=== PATIENT | male | born 1970 | race Caucasian/White ===

== ENCOUNTER 2024-10-27 11:55 | Inpatient (IN) ==
--- NOTE | 2024-10-27 15:53 | EKG ---
Test Reason : chest pain Blood Pressure : */* mmHG Vent. Rate : 70 BPM Atrial Rate : 70 BPM P-R Int : 144 ms QRS Dur : 92 ms QT Int : 406 ms P-R-T Axes : 47 -4 134 degrees QTc Int : 438 ms Normal sinus rhythm Minimal voltage criteria for LVH, may be normal variant ( R in aVL ) Inferior infarct , age undetermined Cannot rule out Anterior infarct , age undetermined Abnormal ECG No previous ECGs available Confirmed by Campbell Rodriguez MD ([id number]) on 10/28/2024 7:47:46 AM Referred By: Confirmed By: Campbell Rodriguez MD
[2024-10-27 16:07] LABS: BASOPHILS % (AUTO) 0.2 % (0.2-1.0); EOSINOPHILS # (AUTO) 0.1 x10^3/uL (0.0-0.2); EOSINOPHILS % (AUTO) 0.4 % (0.9-2.9); NEUTROPHILS % (AUTO) 88.3 % (42.0-75.0); WHITE BLOOD COUNT 20.6 X10^3/uL (3.6-10.0)
[2024-10-27 16:11] LABS: LYMPHOCYTES # (AUTO) 1.4 X10^3/uL (1.3-2.9); LYMPHOCYTES % (AUTO) 6.9 % (21.0-51.0); MEAN CORPUSCULAR HEMOGLOBIN 26.3 pg (27.0-34.0); MEAN CORPUSCULAR HGB CONC 32.8 g/dL (33.0-35.0); MEAN CORPUSCULAR VOLUME 80.2 fL (80.0-100.0); MEAN PLATELET VOLUME 7.7 fL (7.4-11.0); MONOCYTES # (AUTO) 0.9 x10^3/uL (0.3-0.8); MONOCYTES % (AUTO) 4.2 % (0.0-13.0); NEUTROPHILS # (AUTO) 18.1 x10^3/uL (2.2-4.8); PLATELET COUNT 732 X10^3/uL (150.0-450.0); RED BLOOD COUNT 2.23 X10^6/uL (4.7-6.0); RED CELL DISTRIBUTION WIDTH 16.4 % (11.6-16.5); RETICULOCYTE % 3.93 % (0.8-2.2)
[2024-10-27] MEDS: NS 1,000 ML IV 1,000 ML IV SCH ×2 (16:15→18:55)
[2024-10-27 16:16] LABS: HEMOGLOBIN 5.9 g/dL (13.5-18.0)
[2024-10-27 16:17] LABS: HEMATOCRIT 17.9 % (42.0-54.0)
[2024-10-27 16:32] LABS: ALBUMIN 1.6 g/dL (3.4-5.0); CALCIUM 8.1 mg/dL (8.5-10.1); CARBON DIOXIDE 24.7 mmol/L (21-32); CREATININE 3.88 mg/dL (0.70-1.30); TOTAL PROTEIN 6.4 g/dL (6.4-8.2)
[2024-10-27 17:14] LABS: POTASSIUM 7.1 mmol/L (3.5-5.1)
[2024-10-27 17:35] VITALS: BMI 23.0
[2024-10-27] MEDS: NS 1,000 ML IV 1,000 ML IV ONE (17:50)
[2024-10-27] MEDS: NORCO 5/325 MG TAB PO PRN (18:22)
[2024-10-27] MEDS: NovoLIN R (or HumuLIN R) SUBCUT PRN (18:23)
[2024-10-27 20:52] LABS: CALCIUM 7.8 mg/dL (8.5-10.1); CARBON DIOXIDE 24.3 mmol/L (21-32); CREATININE 3.86 mg/dL (0.70-1.30)
[2024-10-27 20:54] LABS: POTASSIUM 6.6 mmol/L (3.5-5.1)
[2024-10-27] MEDS: SNACK - Diabetic Appropriate PO SCH (20:54)
[2024-10-27] MEDS: NS 250 ML IV 250 ML IV ONE (21:44)
[2024-10-27] MEDS: LOKELMA POWDER PO SCH (22:29)
[2024-10-28 00:46] LABS: BILIRUBIN,URINE NEGATIVE (NEGATIVE); BLOOD/HEMOGLOBIN,URINE 4+ (NEGATIVE); GLUCOSE, URINE 4+ (NEGATIVE); KETONES,URINE NEGATIVE (NEGATIVE); LEUKOCYTE ESTERASE ,URINE 3+ (NEGATIVE); NITRITES,URINE NEGATIVE (NEGATIVE); PROTEIN,URINE 3+ (NEGATIVE); UROBILINOGEN,URINE NORMAL (NORMAL)
[2024-10-28 00:53] LABS: APPEARANCE,URINE CLOUDY (CLEAR); BACTERIA,URINE TRACE /HPF (NEGATIVE); COLOR,URINE YELLOW (YELLOW); SQUAMOUS EPITHELIAL CELL,UR RARE /HPF (NEGATIVE)
[2024-10-28 05:00] LABS: BASOPHILS % (AUTO) 0.2 % (0.2-1.0); EOSINOPHILS # (AUTO) 0.2 x10^3/uL (0.0-0.2); EOSINOPHILS % (AUTO) 0.8 % (0.9-2.9); HEMATOCRIT 23.1 % (42.0-54.0); LYMPHOCYTES # (AUTO) 1.1 X10^3/uL (1.3-2.9); LYMPHOCYTES % (AUTO) 4.7 % (21.0-51.0); MEAN CORPUSCULAR HGB CONC 34.3 g/dL (33.0-35.0); MEAN CORPUSCULAR VOLUME 81.7 fL (80.0-100.0); MEAN PLATELET VOLUME 7.6 fL (7.4-11.0); MONOCYTES % (AUTO) 4.2 % (0.0-13.0); NEUTROPHILS # (AUTO) 21.4 x10^3/uL (2.2-4.8); NEUTROPHILS % (AUTO) 90.1 % (42.0-75.0); PLATELET COUNT 666 X10^3/uL (150.0-450.0); RED BLOOD COUNT 2.82 X10^6/uL (4.7-6.0); RED CELL DISTRIBUTION WIDTH 18.1 % (11.6-16.5); WHITE BLOOD COUNT 23.7 X10^3/uL (3.6-10.0)
[2024-10-28 05:08] LABS: ALBUMIN 1.7 g/dL (3.4-5.0); CALCIUM 8.4 mg/dL (8.5-10.1); CARBON DIOXIDE 25.7 mmol/L (21-32); COR CA(FOR HYPOALB) 10.2 mg/dL (8.5-10.1); CREATININE 3.58 mg/dL (0.70-1.30); TOTAL PROTEIN 6.4 g/dL (6.4-8.2)
[2024-10-28 05:31] LABS: HEMOGLOBIN 7.9 g/dL (13.5-18.0)
[2024-10-28 05:32] LABS: ANISOCYTOSIS SLIGHT; PLATELET MORPHOLOGY COMMENT NORMAL (NORMAL)
[2024-10-28 05:35] LABS: HEMOGLOBIN A1C 9.2 %
[2024-10-28 05:42] LABS: SERUM ACETONE NEGATIVE (NEGATIVE)
--- NOTE | 2024-10-28 08:14 | DR.H&P ---
H&P History & Physical for Day of: H&P Date: 10/27/24 Chief Complaint Chief Complaint: generalized weakness back pain, chest pain, abdominal pain History of Present Illness History of Present Illness: Patient is a 53 year old male with past medical history of Type 2 Diabetes mellitus, Hypertension, CAD, OA, Hyperlipidemia, pr esenting as direct admit for abnormal electrolytes and symptomatic anemia. Patient reports generalized weakness, dizziness, abdominal pain, multiple joint pain, and chest pain. Labs/imaging: WBC 21.6, hemoglobin of 5.9, platelets 732, sodium 120 (corrected 138), potassium 6.6, creatinine 3.86, glucose 508, Blood/urine culture pending. A1c 9.2, alkaline phosphatase 193, iron 70, B12 1140, ferritin 881, fecal occult pending, ESR and CRP pending, troponin negative. Patient was admitted for symptomatic anemia, hyperkalemia, acute renal failure, possible GI bleed, hyponatremia, chest pain rule out, hyperosmolar hyperglycemic state. He was given IV fluid bolus, and started on IV fluids normal saline at 125 mL/h. Sliding scale insulin. Will order 2 units packed red blood cells for transfusion. Will also give Lokelma for hyperkalemia. Chest x-ray, CT abdomen and pelvis, and x-ray of the lumbar have been ordered and are pending. Replete electrolytes per protocol. Patient is currently on telemetry in the ICU. Consult general surgery for further evaluation. Otherwise continue with current treatment plan. Continue closely monitor and follow-up labs/imaging. Time spent on clinical assessment, reviewing labs and imaging, decision making, and documentation greater than 45 minutes. Allergies Allergies Allergy/AdvReac Type Severity Reaction Status Date / Time No Known Allergies Allergy Verified 07/15/24 13:40 Labs 10/28/24 04:25 10/28/24 04:25 Labs: Laboratory WBC 20.6 X10^3/uL (3.6-10.0) H 10/27/24 15:35 RBC 2.23 X10^6/uL (4.7-6.0) L 10/27/24 15:35 Hgb 5.9 g/dL (13.5-18.0) L* 10/27/24 15:35 Hct 17.9 % (42.0-54.0) L* 10/27/24 15:35 MCV 80.2 fL (80.0-100.0) 10/27/24 15:35 MCH 26.3 pg (27.0-34.0) L 10/27/24 15:35 MCHC 32.8 g/dL (33.0-35.0) L 10/27/24 15:35 RDW 16.4 % (11.6-16.5) 10/27/24 15:35 Plt Count 732 X10^3/uL (150.0-450.0) H 10/27/24 15:35 MPV 7.7 fL (7.4-11.0) 10/27/24 15:35 Neut % (Auto) 88.3 % (42.0-75.0) H 10/27/24 15:35 Lymph % (Auto) 6.9 % (21.0-51.0) L 10/27/24 15:35 [place] % (Auto) 4.2 % (0.0-13.0) 10/27/24 15:35 Eos % (Auto) 0.4 % (0.9-2.9) L 10/27/24 15:35 Baso % (Auto) 0.2 % (0.2-1.0) 10/27/24 15:35 Neut # (Auto) 18.1 x10^3/uL (2.2-4.8) H 10/27/24 15:35 Lymph # (Auto) 1.4 X10^3/uL (1.3-2.9) 10/27/24 15:35 [place] # (Auto) 0.9 x10^3/uL (0.3-0.8) H 10/27/24 15:35 Eos # (Auto) 0.1 x10^3/uL (0.0-0.2) 10/27/24 15:35 Baso # (Auto) 0.0 X10^3/uL (0.0-0.1) 10/27/24 15:35 Absolute Nucleated RBC 0.0 /100WBC 10/27/24 15:35 Absolute Retic 0.0876 10^6/uL 10/27/24 15:35 Percent Retic 3.93 % (0.8-2.2) H 10/27/24 15:35 Lactic Acid 1.7 mmol/L (0.4-2.0) 10/27/24 15:35 Review of Systems Constitutional: Weakness Eyes: No Symptoms Reported ENT: No Symptoms Reported Respiratory: No Symptoms Reported Cardiovascular: Chest Pain Gastrointestinal: Abdominal Pain Genitourinary: No Symptoms Reported Musculoskeletal: Back Pain Skin: No Symptoms Reported Neurological: No Symptoms Reported Physical Exam Vital Signs: Vital Signs Blood Pressure 102/64 Oriented: Normal Eyes: Normal Ear: Normal Nose: Normal Throat: Normal Respiratory: Clear Throughout Cardiovascular: Normal : Normal Auscultation: Bowel Sounds: Normal Palpation: Normal Tenderness: Epigastric Skin: Decreased Turgur Musculoskeletal: Shoulder and Back:Lumbar (tenderness) Psychiatric: Normal Mood Description: Calm and Appropriate Affect: Normal Speech Pattern: Clear and Appropriate Assessment/Plan (1) Symptomatic anemia: Status: Acute Plan: transfuse 2u packed red blood cells heme occult pending (2) Acute renal failure: Qualifiers: Acute renal failure type: unspecified Qualified Code(s): N17.9 - Acute kidney failure, unspecified Status: Acute Plan: IVF, monitor renal function hold nephrotoxic agents (3) Hyperkalemia: Status: Acute Plan: Order Lokelma (4) Hyponatremia: Status: Acute Plan: IVF (5) Hyperosmolar hyperglycemic state (HHS): Status: Acute (6) Chest pain, rule out acute myocardial infarction: Status: Acute Plan: Troponin negative Review H&P Reviewed: Yes Patient was examined?: Yes
[2024-10-28 08:26] LABS: AMYLASE 31 Units/L (25-115); LIPASE 34 Units/L (16-77)
[2024-10-28 08:56] LABS: RHEUMATOID FACTOR NEGATIVE (NEGATIVE)
[2024-10-28] MEDS ORDERED: PLAVIX PO SCH (09:00)
[2024-10-28] MEDS ORDERED: NS 250 ML IV 250 ML IV ONE (09:29)
--- NOTE | 2024-10-28 09:57 | CT ---
EXAM: CT ABDOMEN AND PELVIS WITHOUT CONTRAST HISTORY: ABD PAIN; COMPARISON: None. TECHNIQUE: Axial CT images were obtained through the abdomen and pelvis without contrast. Coronal reformatted im ages were included. All CT scans at this facility use dose modulation, iterative reconstruction, and/or weight based dosi ng when appropriate to reduce radiation dose to as low as reasonably achievable. FINDINGS: Please note that without the use of intravenous contrast, evaluation of organ parenchyma is limited. LOWER THORAX: Trace pleural effusions and bibasilar atelectasis. Previous CABG ABDOMEN: LIVER: Normal GALLBLADDER: Likely stones or sludge SPLEEN: Normal PANCREAS: Normal KIDNEYS: Fairly significant right-sided perinephric fat stranding is present with some edema of the r enal parenchyma ADRENAL GLANDS: Normal GI TRACT: Mild colonic distention in the cecum and transverse colon LYMPH NODES: No enlarged nodes VESSELS: Mild athero sclerotic disease PERITONEUM / RETROPERITONEUM: No free gas PELVIS: BLADDER: Normal GENITALS: Normal BONES: Normal IMPRESSION: Right-sided renal fullness and parenchymal edema with perinephric fat stranding. Ascending infectiou s not excluded in the setting no definite obstructive stones or hydronephrosis. Patchy airspace consolidation left lung base may be infectious. Trace right pleural effusion. THIS IS AN ELECTRONICALLY VERIFIED FINAL REPORT 10/28/2024 9:54 AM - Electronically signed by Heriberto Myles MD
[2024-10-28] MEDS: ZOSYN VIAL 3.375 GRAMS 3.375 G in NS 100 ML IV 100 ML IV SCH (10:19)
[2024-10-28] MEDS: PROTONIX INJ 40 MG VIAL IVP SCH ×2 (10:19→21:23)
[2024-10-28] MEDS: NS 250 ML IV 25 ML IV PRN (10:19)
[2024-10-28] MEDS: ASPIRIN EC 81 MG PO SCH (10:19)
--- NOTE | 2024-10-28 10:24 | PCM.PROG ---
Progress Note Progress Note for Day of Date of Exam: 10/28/24 Subjective Subjective: Patient seen at bedside, no acute events overnight. He is currently admitted for anemia, GI bleed, UTI and electrolyte imbalance. He recieved 2 units PRBCs, hgb 7.9. He reports having dark tarry stools. Dr Acevedo has been consulted, plan for EGD in the AM. UA suggestive of infection. Na and K im proving, renal function slowly improving. Denies any chest pain or SOB. Denies N/V/D or abdominal pain. He reports generalized weakness. CTAP, CXR and lumbar XR pending. Labs/imaging reviewed: -WBC 23 Hgb 7.9 Plt 660 Na: 124 K 6.0 BUN/Cr 84/3.58 Glucose 140 -Urine Cx pending -Blood Cx pending -FOBT + Plan: Continue ICU care for closer monitoring. Follow surgery recommendations. EGD tomorrow. Continue protonix IV. Monitor H&H. Continue hydration. Will hold off asa/plavix. Follow pending imaging studies. Continue Lokelma. Repeat K level this afternoon. Add Zosyn, follow final cultures. Resume home medications. Avoid nephrotoxic medications. Monitor AM labs/imaging. Time spent for clinical assessment, reviewing labs/imaging, physical exam, decision making and documentation greater than 45 mins. Past Medical Family Social History Allergies: Allergies No Known Allergies Allergy (Verified 07/15/24 13:40) Vital Signs and I&O's Vital Signs: Vital Signs Temperature 98.7 F Temperature 99.0 F Pulse Rate 85 Pulse Rate 86 Pulse Rate 84 Pulse Rate 83 Pulse Rate 83 Pulse Rate 84 Pulse Rate 84 Pulse Rate 84 Pulse Rate 84 Pulse Rate 85 Pulse Rate 85 Pulse Rate 86 Pulse Rate 87 Pulse Rate 86 Pulse Rate 85 Pulse Rate 86 Pulse Rate 85 Pulse Rate 85 Pulse Rate 85 Pulse Rate 85 Pulse Rate 85 Pulse Rate 84 Pulse Rate 83 Pulse Rate 85 Pulse Rate 83 Pulse Rate 83 Pulse Rate 82 Pulse Rate 81 Pulse Rate 81 Pulse Rate 80 Pulse Rate 79 Pulse Rate 78 Respiratory Rate 29 Respiratory Rate 19 Respiratory Rate 26 Respiratory Rate 25 Respiratory Rate 29 Respiratory Rate 29 Respiratory Rate 29 Respiratory Rate 29 Respiratory Rate 27 Respiratory Rate 29 Respiratory Rate 29 Respiratory Rate 28 Respiratory Rate 27 Respiratory Rate 27 Respiratory Rate 28 Respiratory Rate 28 Respiratory Rate 30 Respiratory Rate 29 Respiratory Rate 25 Respiratory Rate 31 Respiratory Rate 29 Respiratory Rate 26 Blood Pressure 117/59 Blood Pressure 124/62 Blood Pressure 117/63 Blood Pressure 134/73 Blood Pressure 134/73 Blood Pressure 152/75 Blood Pressure 157/75 Blood Pressure 144/73 Blood Pressure 144/73 Blood Pressure 153/72 Blood Pressure 128/65 O2 Sat by Pulse Oximetry 95 O2 Sat by Pulse Oximetry 97 O2 Sat by Pulse Oximetry 94 O2 Sat by Pulse Oximetry 99 O2 Sat by Pulse Oximetry 98 O2 Sat by Pulse Oximetry 99 O2 Sat by Pulse Oximetry 97 O2 Sat by Pulse Oximetry 97 O2 Sat by Pulse Oximetry 98 O2 Sat by Pulse Oximetry 97 O2 Sat by Pulse Oximetry 97 O2 Sat by Pulse Oximetry 98 O2 Sat by Pulse Oximetry 97 O2 Sat by Pulse Oximetry 97 O2 Sat by Pulse Oximetry 94 O2 Sat by Pulse Oximetry 96 O2 Sat by Pulse Oximetry 97 O2 Sat by Pulse Oximetry 96 O2 Sat by Pulse Oximetry 96 O2 Sat by Pulse Oximetry 96 O2 Sat by Pulse Oximetry 97 O2 Sat by Pulse Oximetry 97 O2 Sat by Pulse Oximetry 97 O2 Sat by Pulse Oximetry 97 O2 Sat by Pulse Oximetry 96 O2 Sat by Pulse Oximetry 98 O2 Sat by Pulse Oximetry 98 O2 Sat by Pulse Oximetry 94 O2 Sat by Pulse Oximetry 91 O2 Sat by Pulse Oximetry 92 O2 Sat by Pulse Oximetry 93 Intake and Output: Intake & Output 10/25/24 10/26/24 10/27/24 10/28/24 23:59 23:59 23:59 23:59 Intake Total 2010 1177 / 1177 Balance 2010 1177 / 1177 Physical Exam Oriented: Normal Eyes: Normal Ear: Normal Nose: Normal Throat: Normal Respiratory: Generalized and Diminished Cardiovascular: Normal Auscultation: Bowel Sounds: Normal Palpation: Normal Tenderness: Normal Skin: Decreased Turgur Musculoskeletal: Shoulder and Back:Lumbar (tenderness) Psychiatric: Normal Mood Description: Calm and Appropriate Affect: Normal Speech Pattern: Clear and Appropriate Laboratory and Diagnostics 10/28/24 04:25 10/28/24 04:25 Labs: 10/27/24 15:35 Blood Blood Culture Gram Stain - Final Laboratory WBC 23.7 X10^3/uL (3.6-10.0) H 10/28/24 04:25 RBC 2.82 X10^6/uL (4.7-6.0) L 10/28/24 04:25 Hgb 7.9 g/dL (13.5-18.0) L D 10/28/24 04:25 Hct 23.1 % (42.0-54.0) L 10/28/24 04:25 MCV 81.7 fL (80.0-100.0) 10/28/24 04:25 MCH 28.0 pg (27.0-34.0) 10/28/24 04: MCHC 34.3 g/dL (33.0-35.0) 10/28/24 04: RDW 18.1 % (11.6-16.5) H 10/28/24 04:25 Plt Count 666 X10^3/uL (150.0-450.0) H 10/28/24 04: Plt Count Comment Increased (ADEQUATE) 10/28/24 04: MPV 7.6 fL (7.4-11.0) 10/28/24 04: Neut % (Auto) 90.1 % (42.0-75.0) H 10/28/24 04: Lymph % (Auto) 4.7 % (21.0-51.0) L 10/28/24 04:25 [place] % (Auto) 4.2 % (0.0-13.0) 10/28/24 04: Eos % (Auto) 0.8 % (0.9-2.9) L 10/28/24 04: Baso % (Auto) 0.2 % (0.2-1.0) 10/28/24 04: Neut # (Auto) 21.4 x10^3/uL (2.2-4.8) H 10/28/24 04:25 Lymph # (Auto) 1.1 X10^3/uL (1.3-2.9) L 10/28/24 04:25 [place] # (Auto) 1.0 x10^3/uL (0.3-0.8) H 10/28/24 04:25 Eos # (Auto) 0.2 x10^3/uL (0.0-0.2) 10/28/24 04: Baso # (Auto) 0.0 X10^3/uL (0.0-0.1) 10/28/24 04: Absolute Nucleated RBC 0.0 /100WBC 10/28/24 04:25 Total Counted 100 10/28/24 04:25 Neutrophils % (Manual) 87 % (39-76) H 10/28/24 04:25 Lymphocytes % (Manual) 10 % (13-43) L 10/28/24 04:25 Monocytes % (Manual) 2 % (4-9) L 10/28/24 04:25 Eosinophils % (Manual) 1 % (0-6) 10/28/24 04:25 Plt Morphology Comment Normal (NORMAL) 10/28/24 04:25 RBC Morphology Abnormal (NORMAL) 10/28/24 04:25 Anisocytosis Slight A 10/28/24 04:25 ESR 69 MM/HOUR (0-15) H 10/28/24 04:25 Absolute Retic 0.0876 10^6/uL 10/27/24 15:35 Percent Retic 3.93 % (0.8-2.2) H 10/27/24 15:35 Sodium 124 mmol/L (136-145) L* 10/28/24 04:25 Corrected Sodium 125 mmol/L (136-145) L 10/28/24 04:25 Potassium 6.0 mmol/L (3.5-5.1) H* 10/28/24 04:25 Chloride 91 mmol/L (98-107) L 10/28/24 04:25 Carbon Dioxide 25.7 mmol/L (21-32) 10/28/24 04:25 BUN 85 mg/dL (7-18) H 10/28/24 04:25 Creatinine 3.58 mg/dL (0.70-1.30) H 10/28/24 04:25 Est GFR (MDRD) Af Amer 23 (>60) L 10/28/24 04:25 Est GFR (MDRD) Non-Af 19 (>60) L 10/28/24 04:25 Glucose 140 mg/dL (65-99) H 10/28/24 04:25 POC Glucose (mg/dL) 140 mg/dL (65-99) H 10/28/24 05:17 Hemoglobin A1c 9.2 % 10/28/24 04:25 Lactic Acid 1.7 mmol/L (0.4-2.0) 10/27/24 15:35 Calcium 8.4 mg/dL (8.5-10.1) L 10/28/24 04:25 Corrected Calcium 10.2 mg/dL (8.5-10.1) H 10/28/24 04:25 Iron 70 ug/dL (50-175) 10/27/24 15:35 TIBC 207 ug/dL (250-450) L 10/27/24 15:35 Transferrin 164 mg/dL (202-364) L 10/27/24 15:35 Ferritin 881 ng/mL (26-388) H 10/27/24 15:35 Total Bilirubin 0.80 mg/dL (0.2-1.0) 10/28/24 04:25 AST 27 Units/L (15-37) 10/28/24 04:25 ALT 20 Units/L (12-78) 10/28/24 04:25 Alkaline Phosphatase 193 Units/L (46-116) H 10/28/24 04:25 Troponin I High Sens 6.2 ng/L (4.0-60.0) 10/27/24 21:20 C-Reactive Protein 93.90 mg/L (0-3.0) H 10/28/24 04:25 Total Protein 6.4 g/dL (6.4-8.2) 10/28/24 04:25 Albumin 1.7 g/dL (3.4-5.0) L 10/28/24 04:25 Globulin 4.7 g/dL (2.5-4.5) H 10/28/24 04:25 Albumin/Globulin Ratio 0.4 Ratio (1.1-2.1) L 10/28/24 04:25 Amylase 31 Units/L (25-115) 10/28/24 04:25 Lipase 34 Units/L (16-77) 10/28/24 04:25 Vitamin B12 1140 pg/mL (193-986) H 10/27/24 15:35 Folate 7.5 ng/mL (>8.6) L 10/27/24 15:35 Specimen Type Clean catch urine 10/28/24 00:25 Urine Color Yellow (YELLOW) 10/28/24 00:25 Urine Appearance Cloudy (CLEAR) 10/28/24 00:25 Urine pH 5.0 (5.0 - 8.0) 10/28/24 00:25 Ur Specific [place] 1.015 (1.000-1.030) 10/28/24 00:25 Urine Protein 3+ (NEGATIVE) 10/28/24 00:25 Urine Glucose (UA) 4+ (NEGATIVE) 10/28/24 00:25 Urine Ketones Negative (NEGATIVE) 10/28/24 00:25 Urine Blood 4+ (NEGATIVE) 10/28/24 00:25 Urine Nitrite Negative (NEGATIVE) 10/28/24 00:25 Urine Bilirubin Negative (NEGATIVE) 10/28/24 00:25 Urine Urobilinogen Normal (NORMAL) 10/28/24 00:25 Ur Leukocyte Esterase 3+ (NEGATIVE) 10/28/24 00:25 Urine RBC 5-10 /HPF (0-3) A 10/28/24 00:25 Urine WBC Tntc /HPF (0-5) A 10/28/24 00:25 Ur Squamous Epith Cells Rare /HPF (NEGATIVE) 10/28/24 00:25 Amorphous Sediment Trace /HPF (NEGATIVE) 10/28/24 00:25 Urine Bacteria Trace /HPF (NEGATIVE) 10/28/24 00:25 Ur Culture Indicated? Yes/culture set up 10/28/24 00:25 Stl Occult Blood (IFOB) Positive (NEGATIVE) A 10/28/24 08:47 Acetone, Semi-Quant Negative (NEGATIVE) 10/28/24 04:25 Rheumatoid Factor Negative (NEGATIVE) 10/28/24 04:25 Blood Type B NEGATIVE 10/27/24 15:46 Antibody Screen Negative 10/27/24 15:46 Crossmatch See Detail 10/27/24 15:46 Plan (1) GI bleed: Status: Acute Qualifiers: GI bleed type/associated pathology: melena Qualified Code(s): K92.1 - Melena (2) Symptomatic anemia: Status: Acute (3) Acute renal failure: Status: Acute Qualifiers: Acute renal failure type: unspecified Qualified Code(s): N17.9 - Acute kidney failure, unspecified (4) Hyperkalemia: Status: Acute (5) Hyponatremia: Status: Acute Plan: IVF (6) Hyperosmolar hyperglycemic state (HHS): Status: Acute (7) UTI (urinary tract infection): Status: Acute Qualifiers: Hematuria presence: without hematuria Urinary tract infection type: acute cystitis Qualified Code(s): N30.00 - Acute cystitis without hematuria (8) CAD (coronary artery disease): Status: Chronic Qualifiers: Associated angina: unspecified whether angina present Coronary Disease- Associated Artery/Lesion type: unspecified vessel or lesion type [place] vs. transplanted heart: unspecified whether [place] or transplanted heart Qualified Code(s): I25.10 - Atherosclerotic heart disease of [place] coronary artery without angina pectoris (9) Hyperlipidemia: Status: Chronic Qualifiers: Hyperlipidemia type: mixed hyperlipidemia Qualified Code(s): E78.2 - Mixed hyperlipidemia (10) Hypertension: Status: Chronic Qualifiers: Hypertension type: primary hypertension Qualified Code(s): I10 - Esse ntial (primary) hypertension (11) Type 2 diabetes mellitus: Status: Chronic Qualifiers: Diabetes mellitus complication status: with other specified complication Diabetes mellitus penitentiary insulin use: without terminal operator use Qualified Code(s): E11.69 - Type 2 diabetes mellitus with other specified complication
--- NOTE | 2024-10-28 10:47 | RAD ---
EXAM:LUMBAR SPINE, COMPLETEHISTORY:BACK PAIN;COMPARISON:CT abdomen and pelvis 10/28/2024FINDINGS:5 non-ribbed lumbar type vertebral bodies are identified.Very slight sigmoid-shaped curvature. Straightening of the usual lumbar lordosis might be due to muscle spasm.The heights of the vertebral bodies are normal.No spondylolisthesis. No spondylolysis.No evidence for acute fracture.No significant degenerative spondylosis is present.Vascular calcifications are noted in the aorta.EKG leads are noted. Gas is present and moderately distended stomach.IMPRESSION:1. Possible muscle spasmTHIS IS AN ELECTRONICALLY VERIFIED FINAL REPORT10/28/2024 10:20 AM - Electronically signed by Jose Guerrero MD
--- NOTE | 2024-10-28 10:51 | RAD ---
EXAM: AP chest HISTORY: Chest pain COMPARISON: 05/28/2024 FINDINGS: Heart size normal with sternal wires. Stable elevation left diaphragm with distended bowel beneath. Increasing vascular congestion and interstitial pulmonary prominence concerning for perivascular ed guille. IMPRESSION: Described findings suspect for developing CHF/pulmonary edema. No localized pneumonic consolidation is noted. THIS IS AN ELECTRONICALLY VERIFIED FINAL REPORT 10/28/2024 10:48 AM - Electronically signed by Dustin Gregory MD
[2024-10-28 11:59] LABS: HEMOGLOBIN 7.6 g/dL (13.5-18.0)
[2024-10-28 12:06] LABS: HEMATOCRIT 22.5 % (42.0-54.0)
[2024-10-28 12:15] LABS: CALCIUM 7.9 mg/dL (8.5-10.1); CARBON DIOXIDE 22.4 mmol/L (21-32); CREATININE 3.77 mg/dL (0.70-1.30); POTASSIUM 5.3 mmol/L (3.5-5.1)
[2024-10-28] MEDS: TYLENOL 325 MG TAB PO PRN (16:29)
[2024-10-28] MEDS: LASIX IVP ONE (16:51)
[2024-10-28] MEDS: DUONEB 0.5 MG/3 MG (3 mL) NEB SCH (17:00)
[2024-10-28 20:27] LABS: CRYPTOSPORIDIUM PARVUM ANTIGEN NEGATIVE (NEGATIVE); GIARDIA LAMBLIA ANTIGEN NEGATIVE (NEGATIVE)
[2024-10-28] MEDS: PULMICORT NEB TX 0.5 MG NEB SCH (20:34)
[2024-10-28] MEDS: LIPITOR TAB 40 MG PO SCH (21:23)
[2024-10-28] MEDS: HIBICLENS WASH EXT ONE (23:17)
[2024-10-28] MEDS: NS 250 ML IV 250 ML IV ONE (23:19)
[2024-10-29 04:53] LABS: BASOPHILS % (AUTO) 0.2 % (0.2-1.0); EOSINOPHILS # (AUTO) 0.1 x10^3/uL (0.0-0.2); EOSINOPHILS % (AUTO) 0.5 % (0.9-2.9); HEMOGLOBIN 8.6 g/dL (13.5-18.0); LYMPHOCYTES # (AUTO) 0.8 X10^3/uL (1.3-2.9); LYMPHOCYTES % (AUTO) 3.4 % (21.0-51.0); MEAN CORPUSCULAR HEMOGLOBIN 28.7 pg (27.0-34.0); MEAN CORPUSCULAR HGB CONC 34.3 g/dL (33.0-35.0); MEAN CORPUSCULAR VOLUME 83.7 fL (80.0-100.0); MEAN PLATELET VOLUME 7.5 fL (7.4-11.0); MONOCYTES # (AUTO) 0.6 x10^3/uL (0.3-0.8); MONOCYTES % (AUTO) 2.5 % (0.0-13.0); NEUTROPHILS # (AUTO) 20.9 x10^3/uL (2.2-4.8); NEUTROPHILS % (AUTO) 93.4 % (42.0-75.0); PLATELET COUNT 571 X10^3/uL (150.0-450.0); RED BLOOD COUNT 2.99 X10^6/uL (4.7-6.0); RED CELL DISTRIBUTION WIDTH 17.3 % (11.6-16.5); WHITE BLOOD COUNT 22.3 X10^3/uL (3.6-10.0)
[2024-10-29 05:06] LABS: ALBUMIN 1.4 g/dL (3.4-5.0); CARBON DIOXIDE 22.9 mmol/L (21-32); COR CA(FOR HYPOALB) 10.1 mg/dL (8.5-10.1); CREATININE 3.81 mg/dL (0.70-1.30); POTASSIUM 4.6 mmol/L (3.5-5.1); TOTAL PROTEIN 5.9 g/dL (6.4-8.2)
[2024-10-29 05:30] LABS: ANISOCYTOSIS SLIGHT; PLATELET MORPHOLOGY COMMENT NORMAL (NORMAL)
[2024-10-29] MEDS: DUONEB 0.5 MG/3 MG (3 mL) NEB ONE (07:09)
[2024-10-29] MEDS: VANCOMYCIN HCL 1 G in D5W 250 ML IV 250 ML IV SCH (09:26)
[2024-10-29] MEDS: LASIX IVP SCH (09:35)
--- NOTE | 2024-10-29 09:56 | PCM.PROG ---
Progress Note Progress Note for Day of Date of Exam: 10/29/24 Subjective Subjective: Patient seen at bedside, no acute events overnight. He is currently admitted for anemia, GI bleed, UTI and electrolyte imbalance. He received 3 units PRBCs, hgb 8.6. He reports having dark tarry stools. Dr Acevedo has been consulted, plan for EGD today. His Blood Cx is positive for Gram + cocci. CXR did show pulmonary edema. His fluids were decreased to 50cc/hr and he was give IV lasix. This morning, he reports feeling slightly better. Denies N/V/D or abdominal pain. Denies SOB. He reports taking lasix at home daily. Labs/imaging reviewed: -WBC 22 Hgb 8.6 Plt 571 K 4.6 BUN/Cr 83/3.81 Glucose 304 BNP 839 -Urine Cx pending -Blood Cx x 1 : gram + cocci -FOBT + -CTAP: right sided fullness, perinephric stranding Plan: Continue ICU care for closer monitoring. Follow surgery recommendations. EGD today. Continue protonix IV. Monitor H&H. Will stop IVF due to fluid overload. Continue IV lasix 40 mg daily, strict I&Os, daily weights. Repeat CXR. Order echo. Continue Zosyn, add Vancomycin. Follow final cultures. Continue home medications. Avoid nephrotoxic medications. Monitor AM labs/imaging. Time spent for clinical assessment, reviewing labs/imaging, physical exam, de cision making and documentation greater than 45 mins. Past Medical Family Social History Allergies: Allergies No Known Allergies Allergy (Verified 07/15/24 13:40) Vital Signs and I&O's Vital Signs: Vital Signs Temperature 99.3 F Temperature 99.5 F Pulse Rate 86 Pulse Rate 84 Pulse Rate 84 Pulse Rate 84 Pulse Rate 85 Pulse Rate 84 Pulse Rate 86 Pulse Rate 88 Pulse Rate 88 Pulse Rate 90 Pulse Rate 88 Pulse Rate 88 Pulse Rate 88 Pulse Rate 89 Pulse Rate 87 Pulse Rate 87 Pulse Rate 90 Pulse Rate 87 Pulse Rate 87 Pulse Rate 87 Pulse Rate 87 Pulse Rate 87 Pulse Rate 87 Pulse Rate 87 Pulse Rate 89 Pulse Rate 89 Pulse Rate 90 Pulse Rate 91 Respiratory Rate 18 Respiratory Rate 23 Respiratory Rate 23 Respiratory Rate 23 Respiratory Rate 23 Respiratory Rate 22 Respiratory Rate 22 Respiratory Rate 24 Respiratory Rate 24 Respiratory Rate 23 Respiratory Rate 24 Respiratory Rate 21 Respiratory Rate 22 Respiratory Rate 24 Respiratory Rate 25 Blood Pressure 136/73 Blood Pressure 127/66 Blood Pressure 132/68 Blood Pressure 149/84 Blood Pressure 142/84 Blood Pressure 143/77 Blood Pressure 143/77 Blood Pressure 147/72 Blood Pressure 147/72 Blood Pressure 155/74 Blood Pressure 155/74 Blood Pressure 154/72 Blood Pressure 166/79 Blood Pressure 166/71 O2 Sat by Pulse Oximetry 97 O2 Sat by Pulse Oximetry 96 O2 Sat by Pulse Oximetry 96 O2 Sat by Pulse Oximetry 95 O2 Sat by Pulse Oximetry 96 O2 Sat by Pulse Oximetry 94 O2 Sat by Pulse Oximetry 95 O2 Sat by Pulse Oximetry 97 O2 Sat by Pulse Oximetry 97 O2 Sat by Pulse Oximetry 98 O2 Sat by Pulse Oximetry 100 O2 Sat by Pulse Oximetry 100 O2 Sat by Pulse Oximetry 100 O2 Sat by Pulse Oximetry 100 O2 Sat by Pulse Oximetry 99 O2 Sat by Pulse Oximetry 98 O2 Sat by Pulse Oximetry 94 O2 Sat by Pulse Oximetry 94 O2 Sat by Pulse Oximetry 95 O2 Sat by Pulse Oximetry 93 O2 Sat by Pulse Oximetry 96 O2 Sat by Pulse Oximetry 97 O2 Sat by Pulse Oximetry 93 Intake and Output: Intake & Output 10/26/24 10/27/24 10/28/24 10/29/24 23:59 23:59 23:59 23:59 Intake Total 2010 4107 / 4107 800 / 800 Balance 2010 4107 / 4107 800 / 800 Physical Exam Oriented: Normal Eyes: Normal Ear: Normal Nose: Normal Throat: Normal Respiratory: Generalized and Diminished Cardiovascular: Normal and Edema Auscultation: Bowel Sounds: Normal Palpation: Normal Tenderness: Normal Skin: Decreased Turgur Musculoskeletal: Shoulder and Back:Lumbar (tenderness) Psychiatric: Normal Mood Description: Calm and Appropriate Affect: Normal Speech Pattern: Clear and Appropriate Laboratory and Diagnostics 10/29/24 04:36 10/29/24 04:36 Labs: 10/28/24 19:35 Stool Stool Culture - Preliminary 10/28/24 19:35 Stool - Final 10/27/24 15:46 Blood Blood Culture Gram Stain - Final 10/27/24 15:46 Blood Blood Culture - Preliminary 10/27/24 15:35 Blood Blood Culture Gram Stain - Final 10/27/24 15:35 Blood Blood Culture - Preliminary 10/28/24 00:25 Urine,Clean Catch Urine Culture - Preliminary Laboratory WBC 22.3 X10^3/uL (3.6-10.0) H 10/29/24 04:36 RBC 2.99 X10^6/uL (4.7-6.0) L 10/29/24 04:36 Hgb 8.6 g/dL (13.5-18.0) L 10/29/24 04:36 Hct 25.0 % (42.0-54.0) L 10/29/24 04:36 MCV 83.7 fL (80.0-100.0) 10/29/24 04:36 MCH 28.7 pg (27.0-34.0) 10/29/24 04:36 MCHC 34.3 g/dL (33.0-35.0) 10/29/24 04:36 RDW 17.3 % (11.6-16.5) H 10/29/24 04:36 Plt Count 571 X10^3/uL (150.0-450.0) H 10/29/24 04:36 Plt Count Comment Increased (ADEQUATE) 10/29/24 04:36 MPV 7.5 fL (7.4-11.0) 10/29/24 04:36 Neut % (Auto) 93.4 % (42.0-75.0) H 10/29/24 04:36 Lymph % (Auto) 3.4 % (21.0-51.0) L 10/29/24 04:36 [place] % (Auto) 2.5 % (0.0-13.0) 10/29/24 04:36 Eos % (Auto) 0.5 % (0.9-2.9) L 10/29/24 04:36 Baso % (Auto) 0.2 % (0.2-1.0) 10/29/24 04:36 Neut # (Auto) 20.9 x10^3/uL (2.2-4.8) H 10/29/24 04:36 Lymph # (Auto) 0.8 X10^3/uL (1.3-2.9) L 10/29/24 04:36 [place] # (Auto) 0.6 x10^3/uL (0.3-0.8) 10/29/24 04:36 Eos # (Auto) 0.1 x10^3/uL (0.0-0.2) 10/29/24 04:36 Baso # (Auto) 0.0 X10^3/uL (0.0-0.1) 10/29/24 04:36 Absolute Nucleated RBC 0.0 /100WBC 10/29/24 04:36 Total Counted 100 10/29/24 04:36 Neutrophils % (Manual) 92 % (39-76) H 10/29/24 04:36 Lymphocytes % (Manual) 5 % (13-43) L 10/29/24 04:36 Monocytes % (Manual) 3 % (4-9) L 10/29/24 04:36 Eosinophils % (Manual) 1 % (0-6) 10/28/24 04:25 Plt Morphology Comment Normal (NORMAL) 10/29/24 04:36 RBC Morphology Abnormal (NORMAL) 10/29/24 04:36 Anisocytosis Slight A 10/29/24 04:36 ESR 69 MM/HOUR (0-15) H 10/28/24 04:25 Absolute Retic 0.0876 10^6/uL 10/27/24 15:35 Percent Retic 3.93 % (0.8-2.2) H 10/27/24 15:35 Sodium 123 mmol/L (136-145) L* 10/29/24 04:36 Corrected Sodium 129 mmol/L (136-145) L 10/29/24 04:36 Potassium 4.6 mmol/L (3.5-5.1) 10/29/24 04:36 Chloride 91 mmol/L (98-107) L 10/29/24 04:36 Carbon Dioxide 22.9 mmol/L (21-32) 10/29/24 04:36 BUN 83 mg/dL (7-18) H 10/29/24 04:36 Creatinine 3.81 mg/dL (0.70-1.30) H 10/29/24 04:36 Est GFR (MDRD) Af Amer 22 (>60) L 10/29/24 04:36 Est GFR (MDRD) Non-Af 18 (>60) L 10/29/24 04:36 Glucose 348 mg/dL (65-99) H 10/29/24 04:36 POC Glucose (mg/dL) 304 mg/dL (65-99) H 10/29/24 06:08 Hemoglobin A1c 9.2 % 10/28/24 04:25 Lactic Acid 1.7 mmol/L (0.4-2.0) 10/27/24 15:35 Calcium 8.0 mg/dL (8.5-10.1) L 10/29/24 04:36 Corrected Calcium 10.1 mg/dL (8.5-10.1) 10/29/24 04:36 Iron 70 ug/dL (50-175) 10/27/24 15:35 TIBC 207 ug/dL (250-450) L 10/27/24 15:35 Transferrin 164 mg/dL (202-364) L 10/27/24 15:35 Ferritin 881 ng/mL (26-388) H 10/27/24 15:35 Total Bilirubin 0.60 mg/dL (0.2-1.0) 10/29/24 04:36 AST 17 Units/L (15-37) 10/29/24 04:36 ALT 15 Units/L (12-78) 10/29/24 04:36 Alkaline Phosphatase 172 Units/L (46-116) H 10/29/24 04:36 Troponin I High Sens 6.2 ng/L (4.0-60.0) 10/27/24 21:20 C-Reactive Protein 93.90 mg/L (0-3.0) H 10/28/24 04:25 B-Natriuretic Peptide 839 pg/mL (0-79) H 10/28/24 11:49 Total Protein 5.9 g/dL (6.4-8.2) L 10/29/24 04:36 Albumin 1.4 g/dL (3.4-5.0) L 10/29/24 04:36 Globulin 4.5 g/dL (2.5-4.5) 10/29/24 04:36 Albumin/Globulin Ratio 0.3 Ratio (1.1-2.1) L 10/29/24 04:36 Amylase 31 Units/L (25-115) 10/28/24 04:25 Lipase 34 Units/L (16-77) 10/28/24 04:25 Vitamin B12 1140 pg/mL (193-986) H 10/27/24 15:35 Folate 7.5 ng/mL (>8.6) L 10/27/24 15:35 Specimen Type Clean catch urine 10/28/24 00:25 Urine Color Yellow (YELLOW) 10/28/24 00:25 Urine Appearance Cloudy (CLEAR) 10/28/24 00:25 Urine pH 5.0 (5.0 - 8.0) 10/28/24 00:25 Ur Specific [place] 1.015 (1.000-1.030) 10/28/24 00:25 Urine Protein 3+ (NEGATIVE) 10/28/24 00:25 Urine Glucose (UA) 4+ (NEGATIVE) 10/28/24 00:25 Urine Ketones Negative (NEGATIVE) 10/28/24 00:25 Urine Blood 4+ (NEGATIVE) 10/28/24 00:25 Urine Nitrite Negative (NEGATIVE) 10/28/24 00:25 Urine Bilirubin Negative (NEGATIVE) 10/28/24 00: Urine Urobilinogen Normal (NORMAL) 10/28/24 00:25 Ur Leukocyte Esterase 3+ (NEGATIVE) 10/28/24 00:25 Urine RBC 5-10 /HPF (0-3) A 10/28/24 00:25 Urine WBC Tntc /HPF (0-5) A 10/28/24 00:25 Ur Squamous Epith Cells Rare /HPF (NEGATIVE) 10/28/24 00:25 Amorphous Sediment Trace /HPF (NEGATIVE) 10/28/24 00:25 Urine Bacteria Trace /HPF (NEGATIVE) 10/28/24 00:25 Ur Culture Indicated? Yes/culture set up 10/28/24 00:25 Stl Occult Blood (IFOB) Positive (NEGATIVE) A 10/28/24 08:47 Stool for White Cells Positive (NEGATIVE) A 10/28/24 19:35 Stl C. diff Tox B Gene Negative (NEGATIVE) 10/28/24 19:35 Stl C. diff [id number] Presumptive negative (NEGATIVE) 10/28/24 19:35 Acetone, Semi-Quant Negative (NEGATIVE) 10/28/24 04:25 Rheumatoid Factor Negative (NEGATIVE) 10/28/24 04:25 Cryptosporid parvum Ag Negative (NEGATIVE) 10/28/24 19:35 Giardia lamblia Ag Negative (NEGATIVE) 10/28/24 19:35 Blood Type B NEGATIVE 10/27/24 15:46 Antibody Screen Negative 10/27/24 15:46 Crossmatch See Detail 10/27/24 15:46 Plan (1) GI bleed: Status: Acute Qualifiers: GI bleed type/associated pathology: melena Qualified Code(s): K92.1 - Melena (2) Bacteremia: Status: Acute (3) CHF exacerbation: Status: Acute Qualifiers: Heart failure type: unspecified Qualified Code(s): I50.9 - Heart failure, unspecified (4) Pyelonephritis: Status: Acute (5) Symptomatic anemia: Status: Acute Plan: transfuse 3u packed red blood cells (6) Acute renal failure: Status: Acute Qualifiers: Acute renal failure type: unspecified Qualified Code(s): N17.9 - Acute kidney failure, unspecified (7) Hyponatremia: Status: Acute (8) Hyperosmolar hyperglycemic state (HHS): Status: Acute (9) UTI (urinary tract infection): Status: Acute Qualifiers: Urinary tract infection type: acute cystitis Hematuria presence: without hematuria Qualified Code(s): N30.00 - Acute cystitis without hematuria (10) CAD (coronary artery disease): Status: Chronic Qualifiers: Coronary Disease-Associated Artery/Lesion type: unspecified vessel or lesion type [place] vs. transplanted heart: unspecified whether [place] or transplanted heart Associated angina: unspecified whether angina present Qualified Code(s): I25.10 - Atherosclerotic heart disease of [place] coronary artery without angina pectoris (11) Hyperlipidemia: Status: Chronic Qualifiers: Hyperlipidemia type: mixed hyperlipidemia Qualified Code(s): E78.2 - Mixed hyperlipidemia (12) Hypertension: Status: Chronic Qualifiers: Hypertension type: primary hypertension Qualified Code(s): I10 - Essential (primary) hypertension (13) Type 2 diabetes mellitus: Status: Chronic Qualifiers: Diabetes mellitus alcohol rubber insulin use: without residential use Diabetes mellitus complication status: with other specified complication Qualified Code(s): E11.69 - Type 2 diabetes mellitus with other specified complication
[2024-10-29] MEDS ORDERED: STERILE WATER IRRIGATION IR ONE (10:45)
--- NOTE | 2024-10-29 12:05 | RAD ---
EXAM:CHEST, 1 VIEWHISTORY:GI BLEED, LEONORA;COMPARISON:Prior study or studies were utilized for comparison during interpretation with the most relevant dated 10/27/2024TECHNIQUE:CHEST, 1 VIEWFINDINGS:Chest:Lines and tubes: NoneMediastinum: Median sternotomy wires are present. The cardiac shadow is enlarged.Pulmonary vessels: There is pulmonary vascular congestion.Lung porter: Patchy opacities are seenPleura: No effusion. No pneumothorax.Bones and soft tissues: No acute osseous or soft tissue abnormality.IMPRESSION:1. Similar to slightly improved airspace opacities compared to 2 days agoTHIS IS AN ELECTRONICALLY VERIFIED FINAL REPORT10/29/2024 12:02 PM - Electronically signed by Justin Álvarez MD
[2024-10-29] MEDS: NS 1,000 ML IV 250 ML IV PRN (13:15)
[2024-10-29] MEDS: NS 1,000 ML IV 1,000 ML ONE (13:18)
[2024-10-29] MEDS: DIPRIVAN VIAL 160 ML IVP PRN (13:28)
[2024-10-29] MEDS: DIPRIVAN VIAL 20 ML ONE (13:50)
[2024-10-29] MEDS: CARAFATE PO SCH (13:56)
[2024-10-30 04:47] LABS: BASOPHILS % (AUTO) 0.2 % (0.2-1.0); EOSINOPHILS # (AUTO) 0.3 x10^3/uL (0.0-0.2); EOSINOPHILS % (AUTO) 1.7 % (0.9-2.9); HEMOGLOBIN 7.9 g/dL (13.5-18.0); LYMPHOCYTES % (AUTO) 5.7 % (21.0-51.0); MEAN CORPUSCULAR HEMOGLOBIN 28.6 pg (27.0-34.0); MEAN CORPUSCULAR HGB CONC 34.3 g/dL (33.0-35.0); MEAN CORPUSCULAR VOLUME 83.5 fL (80.0-100.0); MEAN PLATELET VOLUME 7.5 fL (7.4-11.0); MONOCYTES # (AUTO) 0.7 x10^3/uL (0.3-0.8); MONOCYTES % (AUTO) 4.2 % (0.0-13.0); NEUTROPHILS # (AUTO) 15.6 x10^3/uL (2.2-4.8); NEUTROPHILS % (AUTO) 88.2 % (42.0-75.0); PLATELET COUNT 543 X10^3/uL (150.0-450.0); RED BLOOD COUNT 2.76 X10^6/uL (4.7-6.0); RED CELL DISTRIBUTION WIDTH 17.3 % (11.6-16.5); WHITE BLOOD COUNT 17.6 X10^3/uL (3.6-10.0)
[2024-10-30 04:57] LABS: ALBUMIN 1.3 g/dL (3.4-5.0); CALCIUM 7.8 mg/dL (8.5-10.1); CREATININE 3.93 mg/dL (0.70-1.30); POTASSIUM 4.5 mmol/L (3.5-5.1); TOTAL PROTEIN 5.8 g/dL (6.4-8.2)
[2024-10-30] MEDS: LASIX IVP SCH (09:54)
[2024-10-30] MEDS: ISOSORBIDE DINITRATE PO SCH (09:55)
[2024-10-30] MEDS: COREG TAB 6.25 MG PO SCH (09:55)
[2024-10-30] MEDS: LANTUS SC SCH (10:10)
[2024-10-30] MEDS: PHARMACY COMMENT IV NR (10:11)
--- NOTE | 2024-10-30 11:13 | PCM.PROG ---
Progress Note Progress Note for Day of Date of Exam: 10/30/24 Subjective Subjective: Patient is a 53 year old male admitted for anemia, GI bleed, UTI, electrolyte imbalance, and now MRSA bacteremia. General surgery-Dr Mills has been consulted, EGD revealed erosive gastritis. His Blood and Urine culture is positive for MRSA. This morning, he reports feeling slightly better. Denies N/V/D or abdominal pain. Denies SOB. Labs/imaging reviewed: -WBC 17.6, hemoglobin 7.9, platelets 543, sodium 133, potassium 4.5, creatinine 3.93, glucose 343. -Urine Cx positive for MRSA -Blood Cx x2 positive for MRSA -FOBT + -CTAP: right sided fullness, perinephric stranding -Echo EF 50-55% Plan: Continue ICU care for closer monitoring. Follow surgery recommendations. Continue protonix IV. Monitor H&H. Strict I&Os, daily weights. Order renal ultrasound and urine studies. Continue Zosyn and Vancomycin. Repeat blood cultures in the morning. Start on Lantus 10u daily for hyperglycemia. Continue home medications. Avoid nephrotoxic medications. Will consult Shauna bhatti for nephrology. Monitor AM labs/imaging. Time spent for clinical assessment, reviewing labs/imaging, physical exam, decision making and documentation greater than 45 mins. Past Medical Family Social History Allergies: Allergies No Known Allergies Allergy (Verified 07/15/24 13:40) Review of Systems ROS changes noted: see HPI Vital Signs and I&O's Vital Signs: Vital Signs Temperature 98.5 F Temperature 99.3 F Pulse Rate 79 Pulse Rate 86 Pulse Rate 90 Pulse Rate 88 Respiratory Rate 20 Respiratory Rate 18 Respiratory Rate 18 Respiratory Rate 17 Blood Pressure 149/77 Blood Pressure 146/85 Blood Pressure 124/73 Blood Pressure 127/69 O2 Sat by Pulse Oximetry 100 O2 Sat by Pulse Oximetry 96 O2 Sat by Pulse Oximetry 97 O2 Sat by Pulse Oximetry 96 Intake and Output: Intake & Output 10/27/24 10/28/24 10/29/24 10/30/24 23:59 23:59 23:59 23:59 Intake Total 2010 4107 / 4107 1887 / 1887 300 / 300 Output Total 1800 / 1800 1300 / 1300 Balance 2010 4107 / 4107 87 / 87 -1000 / -1000 Physical Exam Oriented: Normal Eyes: Normal Ear: Normal Nose: Normal Throat: Normal Respiratory: Generalized and Diminished Cardiovascular: Normal and Edema : Normal Auscultation: Bowel Sounds: Normal Tenderness: Normal Skin: Decreased Turgur Musculoskeletal: Normal Psychiatric: Normal Mood Description: Calm and Appropriate Affect: Normal Speech Pattern: Clear and Appropriate Laboratory and Diagnostics 10/30/24 04:19 10/30/24 04:19 Labs: 10/28/24 19:35 Stool Stool Culture - Final 10/28/24 19:35 Stool - Final 10/28/24 00:25 Urine,Clean Catch Urine Culture - Final Methicillin Resis Staph Aureus 10/27/24 15:46 Blood Blood Culture Gram Stain - Final 10/27/24 15:46 Blood Blood Culture - Final Methicillin Resis Staph Aureus 10/27/24 15:35 Blood Blood Culture Gram Stain - Final 10/27/24 15:35 Blood Blood Culture - Final Methicillin Resis Staph Aureus Laboratory WBC 17.6 X10^3/uL (3.6-10.0) H 10/30/24 04:19 RBC 2.76 X10^6/uL (4.7-6.0) L 10/30/24 04:19 Hgb 7.9 g/dL (13.5-18.0) L 10/30/24 04:19 Hct 23.0 % (42.0-54.0) L 10/30/24 04:19 MCV 83.5 fL (80.0-100.0) 10/30/24 04:19 MCH 28.6 pg (27.0-34.0) 10/30/24 04:19 MCHC 34.3 g/dL (33.0-35.0) 10/30/24 04:19 RDW 17.3 % (11.6-16.5) H 10/30/24 04:19 Plt Count 543 X10^3/uL (150.0-450.0) H 10/30/24 04:19 Plt Count Comment Increased (ADEQUATE) 10/29/24 04:36 MPV 7.5 fL (7.4-11.0) 10/30/24 04:19 Neut % (Auto) 88.2 % (42.0-75.0) H 10/30/24 04:19 Lymph % (Auto) 5.7 % (21.0-51.0) L 10/30/24 04:19 [place] % (Auto) 4.2 % (0.0-13.0) 10/30/24 04:19 Eos % (Auto) 1.7 % (0.9-2.9) 10/30/24 04:19 Baso % (Auto) 0.2 % (0.2-1.0) 10/30/24 04:19 Neut # (Auto) 15.6 x10^3/uL (2.2-4.8) H 10/30/24 04:19 Lymph # (Auto) 1.0 X10^3/uL (1.3-2.9) L 10/30/24 04:19 [place] # (Auto) 0.7 x10^3/uL (0.3-0.8) 10/30/24 04:19 Eos # (Auto) 0.3 x10^3/uL (0.0-0.2) H 10/30/24 04:19 Baso # (Auto) 0.0 X10^3/uL (0.0-0.1) 10/30/24 04:19 Absolute Nucleated RBC 0.1 /100WBC 10/30/24 04:19 Total Counted 100 10/29/24 04:36 Neutrophils % (Manual) 92 % (39-76) H 10/29/24 04:36 Lymphocytes % (Manual) 5 % (13-43) L 10/29/24 04:36 Monocytes % (Manual) 3 % (4-9) L 10/29/24 04:36 Eosinophils % (Manual) 1 % (0-6) 10/28/24 04:25 Plt Morphology Comment Normal (NORMAL) 10/29/24 04:36 RBC Morphology Abnormal (NORMAL) 10/29/24 04:36 Anisocytosis Slight A 10/29/24 04:36 ESR 69 MM/HOUR (0-15) H 10/28/24 04:25 Absolute Retic 0.0876 10^6/uL 10/27/24 15:35 Percent Retic 3.93 % (0.8-2.2) H 10/27/24 15:35 Sodium 127 mmol/L (136-145) L 10/30/24 04:19 Corrected Sodium 133 mmol/L (136-145) L 10/30/24 04:19 Potassium 4.5 mmol/L (3.5-5.1) 10/30/24 04:19 Chloride 94 mmol/L (98-107) L 10/30/24 04:19 Carbon Dioxide 25.0 mmol/L (21-32) 10/30/24 04:19 BUN 74 mg/dL (7-18) H 10/30/24 04:19 Creatinine 3.93 mg/dL (0.70-1.30) H 10/30/24 04:19 Est GFR (MDRD) Af Amer 21 (>60) L 10/30/24 04:19 Est GFR (MDRD) Non-Af 17 (>60) L 10/30/24 04:19 Glucose 343 mg/dL (65-99) H 10/30/24 04:19 POC Glucose (mg/dL) 332 mg/dL (65-99) H 10/30/24 05:24 Hemoglobin A1c 9.2 % 10/28/24 04:25 Lactic Acid 1.7 mmol/L (0.4-2.0) 10/27/24 15:35 Calcium 7.8 mg/dL (8.5-10.1) L 10/30/24 04:19 Corrected Calcium 10.0 mg/dL (8.5-10.1) 10/30/24 04:19 Iron 70 ug/dL (50-175) 10/27/24 15:35 TIBC 207 ug/dL (250-450) L 10/27/24 15:35 Transferrin 164 mg/dL (202-364) L 10/27/24 15:35 Ferritin 881 ng/mL (26-388) H 10/27/24 15:35 Total Bilirubin 0.50 mg/dL (0.2-1.0) 10/30/24 04:19 AST 16 Units/L (15-37) 10/30/24 04:19 ALT 16 Units/L (12-78) 10/30/24 04:19 Alkaline Phosphatase 159 Units/L (46-116) H 10/30/24 04:19 Troponin I High Sens 6.2 ng/L (4.0-60.0) 10/27/24 21:20 C-Reactive Protein 93.90 mg/L (0-3.0) H 10/28/24 04:25 B-Natriuretic Peptide 839 pg/mL (0-79) H 10/28/24 11:49 Total Protein 5.8 g/dL (6.4-8.2) L 10/30/24 04:19 Albumin 1.3 g/dL (3.4-5.0) L 10/30/24 04:19 Globulin 4.5 g/dL (2.5-4.5) 10/30/24 04:19 Albumin/Globulin Ratio 0.3 Ratio (1.1-2.1) L 10/30/24 04:19 Amylase 31 Units/L (25-115) 10/28/24 04:25 Lipase 34 Units/L (16-77) 10/28/24 04:25 Vitamin B12 1140 pg/mL (193-986) H 10/27/24 15:35 Folate 7.5 ng/mL (>8.6) L 10/27/24 15:35 Homocysteine 18.4 umol/L (<11.4) H 10/27/24 15:35 Specimen Type Clean catch urine 10/28/24 00:25 Urine Color Yellow (YELLOW) 10/28/24 00:25 Urine Appearance Cloudy (CLEAR) 10/28/24 00:25 Urine pH 5.0 (5.0 - 8.0) 10/28/24 00:25 Ur Specific [place] 1.015 (1.000-1.030) 10/28/24 00:25 Urine Protein 3+ (NEGATIVE) 10/28/24 00:25 Urine Glucose (UA) 4+ (NEGATIVE) 10/28/24 00:25 Urine Ketones Negative (NEGATIVE) 10/28/24 00:25 Urine Blood 4+ (NEGATIVE) 10/28/24 00:25 Urine Nitrite Negative (NEGATIVE) 10/28/24 00:25 Urine Bilirubin Negative (NEGATIVE) 10/28/24 00:25 Urine Urobilinogen Normal (NORMAL) 10/28/24 00:25 Ur Leukocyte Esterase 3+ (NEGATIVE) 10/28/24 00:25 Urine RBC 5-10 /HPF (0-3) A 10/28/24 00:25 Urine WBC Tntc /HPF (0-5) A 10/28/24 00:25 Ur Squamous Epith Cells Rare /HPF (NEGATIVE) 10/28/24 00:25 Amorphous Sediment Trace /HPF (NEGATIVE) 10/28/24 00:25 Urine Bacteria Trace /HPF (NEGATIVE) 10/28/24 00:25 Ur Culture Indicated? Yes/culture set up 10/28/24 00:25 Stl Occult Blood (IFOB) Positive (NEGATIVE) A 10/28/24 08:47 Stool for White Cells Positive (NEGATIVE) A 10/28/24 19:35 Stl C. diff Tox B Gene Negative (NEGATIVE) 10/28/24 19:35 Stl C. diff [id number] Presumptive negative (NEGATIVE) 10/28/24 19:35 Random Vancomycin 12.0 ug/mL 10/30/24 08:17 Acetone, Semi-Quant Negative (NEGATIVE) 10/28/24 04:25 Rheumatoid Factor Negative (NEGATIVE) 10/28/24 04:25 Cryptosporid parvum Ag Negative (NEGATIVE) 10/28/24 19:35 Giardia lamblia Ag Negative (NEGATIVE) 10/28/24 19:35 Blood Type B NEGATIVE 10/27/24 15:46 Antibody Screen Negative 10/27/24 15:46 Crossmatch See Detail 10/27/24 15:46 Plan (1) GI bleed: Status: Acute Qualifiers: GI bleed type/associated pathology: melena Qualified Code(s): K92.1 - Melena (2) Bacteremia: Status: Acute (3) CHF exacerbation: Status: Acute Qualifiers: Heart failure type: unspecified Qualified Code(s): I50.9 - Heart failure, unspecified (4) Pyelonephritis: Status: Acute (5) Symptomatic anemia: Status: Acute Plan: transfuse 3u packed red blood cells (6) Acute renal failure: Status: Acute Qualifiers: Acute renal failure type: unspecified Qualified Code(s): N17.9 - Acute kidney failure, unspecified Plan: IVF, monitor renal function hold nephrotoxic agents (7) Hyponatremia: Status: Acute Plan: IVF (8) Hyperosmolar hyperglycemic state (HHS): Status: Acute (9) UTI (urinary tract infection): Status: Acute Qualifiers: Urinary tract infection type: acute cystitis Hematuria presence: without hematuria Qualified Code(s): N30.00 - Acute cystitis without hematuria (10) CAD (coronary artery disease): Status: Chronic Qualifiers: Coronary Disease-Associated Artery/Lesion type: unspecified vessel or lesion type [place] vs. transplanted heart: unspecified whether [place] or transplanted heart Associated angina: unspecified whether angina present Qualified Code(s): I25.10 - Atherosclerotic heart disease of [place] coronary artery without angina pectoris (11) Hyperlipidemia: Status: Chronic Qualifiers: Hyperlipidemia type: mixed hyperlipidemia Qualified Code(s): E78.2 - Mixed hyperlipidemia (12) Hypertension: Status: Chronic Qualifiers: Hypertension type: primary hypertension Qualified Code(s): I10 - Essential (primary) hypertension (13) Type 2 diabetes mellitus: Status: Chronic Qualifiers: Diabetes mellitus terminal makeup operator insulin use: without terminal makeup operator use Diabetes mellitus complication status: with other specified complication Qualified Code(s): E11.69 - Type 2 diabetes mellitus with other specified complication
[2024-10-30 13:02] LABS: CREATININE,URINE < 13 mg/dL (40-278); SODIUM,URINE 83 mmol/L (40-220)
--- NOTE | 2024-10-30 16:36 | US ---
EXAMINATION:RENAL SCANHISTORY:renal failure; RENAL FAILURE .COMPARISON STUDY:None.TECHNIQUE:Real-time grayscale, color flow, duplex Doppler spectral analysis ultrasound of the kidneysFINDINGS:The kidneys are slightly hyperechoic. No hydronephrosis.Right kidney 13.9 x 6.3 x 6.3 cm with a renal cortex thickness 1.9 cm and renal resistive index 0.82.Left kidney 12 x 6.9 x 6.2 cm with a renal cortex thickness 2.8 cm and renal resistive index 0.78.1.7 x 1.3 by 1.2 cm anechoic mass cortex upper pole right kidney with subtle variable posterior acoustic enhancement most consistent with a cyst.Urinary bladder mildly distended with anechoic urine having a bladder volume of 84 cc of urine.IMPRESSION:The kidneys are slightly hyperechoic and have elevated renal resistive indices. Consider changes of chronic medical renal disease. No hydronephrosis.Probable 1.7 cm cyst upper pole right kidney.THIS IS AN ELECTRONICALLY VERIFIED FINAL REPORT10/30/2024 4:32 PM - Electronically signed by Giselle Menendez MD
[2024-10-30] MEDS: NS 1,000 ML IV 1,000 ML IV SCH (16:58)
[2024-10-30] MEDS: NS IV SCH (16:59)
[2024-10-30] MEDS: CUBICIN IV SCH (16:59)
[2024-10-30] MEDS: PHARMACY CONSULT - VANCOMYCIN XX SCH (22:22)
[2024-10-31 05:13] LABS: BASOPHILS # (AUTO) 0.2 X10^3/uL (0.0-0.1); BASOPHILS % (AUTO) 1.2 % (0.2-1.0); EOSINOPHILS # (AUTO) 0.5 x10^3/uL (0.0-0.2); EOSINOPHILS % (AUTO) 2.6 % (0.9-2.9); HEMATOCRIT 23.2 % (42.0-54.0); HEMOGLOBIN 8.1 g/dL (13.5-18.0); LYMPHOCYTES # (AUTO) 1.4 X10^3/uL (1.3-2.9); LYMPHOCYTES % (AUTO) 7.6 % (21.0-51.0); MEAN CORPUSCULAR HGB CONC 34.8 g/dL (33.0-35.0); MEAN CORPUSCULAR VOLUME 83.3 fL (80.0-100.0); MEAN PLATELET VOLUME 7.2 fL (7.4-11.0); MONOCYTES # (AUTO) 0.9 x10^3/uL (0.3-0.8); MONOCYTES % (AUTO) 4.7 % (0.0-13.0); NEUTROPHILS # (AUTO) 15.2 x10^3/uL (2.2-4.8); NEUTROPHILS % (AUTO) 83.9 % (42.0-75.0); PLATELET COUNT 639 X10^3/uL (150.0-450.0); RED BLOOD COUNT 2.79 X10^6/uL (4.7-6.0); RED CELL DISTRIBUTION WIDTH 17.7 % (11.6-16.5); WHITE BLOOD COUNT 18.1 X10^3/uL (3.6-10.0)
[2024-10-31 05:28] LABS: ALBUMIN 1.3 g/dL (3.4-5.0); CALCIUM 7.9 mg/dL (8.5-10.1); CARBON DIOXIDE 23.5 mmol/L (21-32); COR CA(FOR HYPOALB) 10.1 mg/dL (8.5-10.1); CREATININE 4.18 mg/dL (0.70-1.30); POTASSIUM 4.3 mmol/L (3.5-5.1)
--- NOTE | 2024-10-31 09:55 | PCM.PROG ---
Progress Note Progress Note for Day of Date of Exam: 10/31/24 Subjective Subjective: Patient is a 53 year old male admitted for anemia, GI bleed, UTI, electrolyte imbalance, and MRSA bacteremia. His Blood and Urine culture is positive for MRSA. This morning, he resting comfortably in bed. No acute events overnight. Labs/imaging reviewed: -WBC 18.1, hemoglobin 8.1, platelets 639, sodium 136, potassium 4.3, creatinine 4.18, glucose 292. -Urine Cx positive for MRSA -Blood Cx x2 positive for MRSA -FOBT +, EGD revealed erosive gastritis -CTAP: right sided fullness, perinephric stranding -Renal U/S: The kidneys are slightly hyperechoic and have elevated renal resis tive indices. Consider changes of chronic medical renal disease. No hydronephrosis. -Echo EF 50-55% Plan: Continue ICU care for closer monitoring. Follow [facility] telemedicine recommendations. ID recommends changing to daptomycin and getting an MRI of the entire spine. Will order. Check CPK levels twice a week. Repeat blood cultures tomorrow morning. There is a concern for possible endocarditis. They will continue to follow. Worsening renal function, [facility] will be following him today. Continue protonix IV. Monitor H&H. Strict I&Os, daily weights. Continue home medications. Avoid nephrotoxic medications. Monitor AM labs/imaging. Time spent for clinical assessment, reviewing labs/imaging, physical exam, decision making and documentation greater than 45 mins. Past Medical Family Social History Allergies: Allergies No Known Allergies Allergy (Verified 07/15/24 13:40) Review of Systems ROS changes noted: see HPI Vital Signs and I&O's Vital Signs: Vital Signs Temperature 98.9 F Temperature 99.0 F Pulse Rate 83 Pulse Rate 83 Blood Pressure 158/92 Blood Pressure 144/82 O2 Sat by Pulse Oximetry 98 O2 Sat by Pulse Oximetry 98 Intake and Output: Intake & Output 10/28/24 10/29/24 10/30/24 10/31/24 23:59 23:59 23:59 23:59 Intake Total 4107 / 4107 1887 / 1887 3897 / 3897 616 / 616 Output Total 1800 / 1800 4000 / 4000 1600 / 1600 Balance 4107 / 4107 87 / 87 -103 / -103 -984 / -984 Physical Exam Oriented: Normal Eyes: Normal Ear: Normal Nose: Normal Throat: Normal Respiratory: Generalized and Diminished Cardiovascular: Normal and Edema : Normal Auscultation: Bowel Sounds: Normal Tenderness: Normal Skin: Decreased Turgur Musculoskeletal: Normal Psychiatric: Normal Mood Description: Calm and Appropriate Affect: Normal Speech Pattern: Clear and Appropriate Laboratory and Diagnostics 10/31/24 04:50 10/31/24 04:50 Labs: 10/28/24 19:35 Stool Stool Culture - Final 10/28/24 19:35 Stool - Final 10/28/24 00:25 Urine,Clean Catch Urine Culture - Final Methicillin Resis Staph Aureus 10/27/24 15:46 Blood Blood Culture Gram Stain - Final 10/27/24 15:46 Blood Blood Culture - Final Methicillin Resis Staph Aureus 10/27/24 15:35 Blood Blood Culture Gram Stain - Final 10/27/24 15:35 Blood Blood Culture - Final Methicillin Resis Staph Aureus Laboratory WBC 18.1 X10^3/uL (3.6-10.0) H 10/31/24 04:50 RBC 2.79 X10^6/uL (4.7-6.0) L 10/31/24 04:50 Hgb 8.1 g/dL (13.5-18.0) L 10/31/24 04:50 Hct 23.2 % (42.0-54.0) L 10/31/24 04:50 MCV 83.3 fL (80.0-100.0) 10/31/24 04:50 MCH 29.0 pg (27.0-34.0) 10/31/24 04:50 MCHC 34.8 g/dL (33.0-35.0) 10/31/24 04:50 RDW 17.7 % (11.6-16.5) H 10/31/24 04:50 Plt Count 639 X10^3/uL (150.0-450.0) H 10/31/24 04:50 Plt Count Comment Increased (ADEQUATE) 10/29/24 04:36 MPV 7.2 fL (7.4-11.0) L 10/31/24 04:50 Neut % (Auto) 83.9 % (42.0-75.0) H 10/31/24 04:50 Lymph % (Auto) 7.6 % (21.0-51.0) L 10/31/24 04:50 [place] % (Auto) 4.7 % (0.0-13.0) 10/31/24 04:50 Eos % (Auto) 2.6 % (0.9-2.9) 10/31/24 04:50 Baso % (Auto) 1.2 % (0.2-1.0) H 10/31/24 04:50 Neut # (Auto) 15.2 x10^3/uL (2.2-4.8) H 10/31/24 04:50 Lymph # (Auto) 1.4 X10^3/uL (1.3-2.9) 10/31/24 04:50 [place] # (Auto) 0.9 x10^3/uL (0.3-0.8) H 10/31/24 04:50 Eos # (Auto) 0.5 x10^3/uL (0.0-0.2) H 10/31/24 04:50 Baso # (Auto) 0.2 X10^3/uL (0.0-0.1) H 10/31/24 04:50 Absolute Nucleated RBC 0.0 /100WBC 10/31/24 04:50 Total Counted 100 10/29/24 04:36 Neutrophils % (Manual) 92 % (39-76) H 10/29/24 04:36 Lymphocytes % (Manual) 5 % (13-43) L 10/29/24 04:36 Monocytes % (Manual) 3 % (4-9) L 10/29/24 04:36 Eosinophils % (Manual) 1 % (0-6) 10/28/24 04:25 Plt Morphology Comment Normal (NORMAL) 10/29/24 04:36 RBC Morphology Abnormal (NORMAL) 10/29/24 04:36 Anisocytosis Slight A 10/29/24 04:36 ESR 69 MM/HOUR (0-15) H 10/28/24 04:25 Absolute Retic 0.0876 10^6/uL 10/27/24 15:35 Percent Retic 3.93 % (0.8-2.2) H 10/27/24 15:35 Sodium 131 mmol/L (136-145) L 10/31/24 04:50 Corrected Sodium 136 mmol/L (136-145) 10/31/24 04:50 Potassium 4.3 mmol/L (3.5-5.1) 10/31/24 04:50 Chloride 96 mmol/L (98-107) L 10/31/24 04:50 Carbon Dioxide 23.5 mmol/L (21-32) 10/31/24 04:50 BUN 68 mg/dL (7-18) H 10/31/24 04:50 Creatinine 4.18 mg/dL (0.70-1.30) H 10/31/24 04:50 Est GFR (MDRD) Af Amer 19 (>60) L 10/31/24 04:50 Est GFR (MDRD) Non-Af 16 (>60) L 10/31/24 04:50 Glucose 292 mg/dL (65-99) H 10/31/24 04:50 POC Glucose (mg/dL) 292 mg/dL (65-99) H 10/31/24 04:51 Hemoglobin A1c 9.2 % 10/28/24 04:25 Lactic Acid 1.7 mmol/L (0.4-2.0) 10/27/24 15:35 Calcium 7.9 mg/dL (8.5-10.1) L 10/31/24 04:50 Corrected Calcium 10.1 mg/dL (8.5-10.1) 10/31/24 04:50 Iron 70 ug/dL (50-175) 10/27/24 15:35 TIBC 207 ug/dL (250-450) L 10/27/24 15:35 Transferrin 164 mg/dL (202-364) L 10/27/24 15:35 Ferritin 881 ng/mL (26-388) H 10/27/24 15:35 Total Bilirubin 0.40 mg/dL (0.2-1.0) 10/31/24 04:50 AST 15 Units/L (15-37) 10/31/24 04:50 ALT 19 Units/L (12-78) 10/31/24 04:50 Alkaline Phosphatase 158 Units/L (46-116) H 10/31/24 04:50 Troponin I High Sens 6.2 ng/L (4.0-60.0) 10/27/24 21:20 C-Reactive Protein 93.90 mg/L (0-3.0) H 10/28/24 04:25 B-Natriuretic Peptide 839 pg/mL (0-79) H 10/28/24 11:49 Total Protein 6.0 g/dL (6.4-8.2) L 10/31/24 04:50 Albumin 1.3 g/dL (3.4-5.0) L 10/31/24 04:50 Globulin 4.7 g/dL (2.5-4.5) H 10/31/24 04:50 Albumin/Globulin Ratio 0.3 Ratio (1.1-2.1) L 10/31/24 04:50 Amylase 31 Units/L (25-115) 10/28/24 04:25 Lipase 34 Units/L (16-77) 10/28/24 04:25 Vitamin B12 1140 pg/mL (193-986) H 10/27/24 15:35 Folate 7.5 ng/mL (>8.6) L 10/27/24 15:35 Homocysteine 18.4 umol/L (<11.4) H 10/27/24 15:35 Specimen Type Clean catch urine 10/28/24 00:25 Urine Color Yellow (YELLOW) 10/28/24 00:25 Urine Appearance Cloudy (CLEAR) 10/28/24 00:25 Urine pH 5.0 (5.0 - 8.0) 10/28/24 00:25 Ur Specific [place] 1.015 (1.000-1.030) 10/28/24 00:25 Urine Protein 3+ (NEGATIVE) 10/28/24 00:25 Urine Glucose (UA) 4+ (NEGATIVE) 10/28/24 00:25 Urine Ketones Negative (NEGATIVE) 10/28/24 00:25 Urine Blood 4+ (NEGATIVE) 10/28/24 00:25 Urine Nitrite Negative (NEGATIVE) 10/28/24 00:25 Urine Bilirubin Negative (NEGATIVE) 10/28/24 00:25 Urine Urobilinogen Normal (NORMAL) 10/28/24 00:25 Ur Leukocyte Esterase 3+ (NEGATIVE) 10/28/24 00:25 Urine RBC 5-10 /HPF (0-3) A 10/28/24 00:25 Urine WBC Tntc /HPF (0-5) A 10/28/24 00:25 Ur Squamous Epith Cells Rare /HPF (NEGATIVE) 10/28/24 00:25 Amorphous Sediment Trace /HPF (NEGATIVE) 10/28/24 00:25 Urine Bacteria Trace /HPF (NEGATIVE) 10/28/24 00:25 Ur Culture Indicated? Yes/culture set up 10/28/24 00:25 Ur Random Sodium 83 mmol/L (40-220) 10/30/24 12:42 Urine Creatinine < 13 mg/dL (40-278) L 10/30/24 12:42 Stl Occult Blood (IFOB) Positive (NEGATIVE) A 10/28/24 08:47 Stool for White Cells Positive (NEGATIVE) A 10/28/24 19:35 Stl C. diff Tox B Gene Negative (NEGATIVE) 10/28/24 19:35 Stl C. diff [id number] Presumptive negative (NEGATIVE) 10/28/24 19:35 Random Vancomycin 12.0 ug/mL 10/30/24 08:17 Acetone, Semi-Quant Negative (NEGATIVE) 10/28/24 04:25 Rheumatoid Factor Negative (NEGATIVE) 10/28/24 04:25 MUNDO Screen Positive (NEGATIVE) H 10/28/24 04:25 MUNDO Titer 1:40 titer H 10/28/24 04:25 MUNDO Pattern Nuclear, speckled H 10/28/24 04:25 Cryptosporid parvum Ag Negative (NEGATIVE) 10/28/24 19:35 Giardia lamblia Ag Negative (NEGATIVE) 10/28/24 19:35 Resp Viral Panel (PCR) See scanned report 10/28/24 15:10 Blood Type B NEGATIVE 10/27/24 15:46 Antibody Screen Negative 10/27/24 15:46 Crossmatch See Detail 10/27/24 15:46 Plan (1) GI bleed: Status: Acute Qualifiers: GI bleed type/associated pathology: melena Qualified Code(s): K92.1 - Melena (2) Bacteremia: Status: Acute (3) CHF exacerbation: Status: Acute Qualifiers: Heart failure type: unspecified Qualified Code(s): I50.9 - Heart failure, unspecified (4) Pyelonephritis: Status: Acute (5) Symptomatic anemia: Status: Acute Plan: transfuse 3u packed red blood cells (6) Acute renal failure: Status: Acute Qualifiers: Acute renal failure type: unspecified Qualified Code(s): N17.9 - Acute kidney failure, unspecified Plan: IVF, monitor renal function hold nephrotoxic agents (7) Hyponatremia: Status: Acute Plan: IVF (8) Hyperosmolar hyperglycemic state (HHS): Status: Acute (9) UTI (urinary tract infection): Status: Acute Qualifiers: Urinary tract infection type: acute cystitis Hematuria presence: without hematuria Qualified Code(s): N30.00 - Acute cystitis without hematuria (10) CAD (coronary artery disease): Status: Chronic Qualifiers: Coronary Disease-Associated Artery/Lesion type: unspecified vessel or lesion type [place] vs. transplanted heart: unspecified whether [place] or transplanted heart Associated angina: unspecified whether angina present Qualified Code(s): I25.10 - Atherosclerotic heart disease of [place] coronary artery without angina pectoris (11) Hyperlipidemia: Status: Chronic Qualifiers: Hyperlipidemia type: mixed hyperlipidemia Qualified Code(s): E78.2 - Mixed hyperlipidemia (12) Hypertension: Status: Chronic Qualifiers: Hypertension type: primary hypertension Qualified Code(s): I10 - Essential (primary) hypertension (13) Type 2 diabetes mellitus: Status: Chronic Qualifiers: Diabetes mellitus senior care insulin use: without senior care use Diabetes mellitus complication status: with other specified complication Qualified Code(s): E11.69 - Type 2 diabetes mellitus with other specified complication
[2024-10-31] MEDS: LR 1,000 ML IV 1,000 ML IV ONE ×3 (10:58→12:02)
[2024-10-31] MEDS: NS 1,000 ML IV 1,000 ML IV SCH (13:05)
[2024-10-31] MEDS ORDERED: ZOSYN VIAL 3.375 GRAMS 3.375 G in NS 100 ML IV 100 ML IV SCH (21:00)
[2024-11-01 05:20] LABS: BASOPHILS # (AUTO) 0.1 X10^3/uL (0.0-0.1); EOSINOPHILS # (AUTO) 0.5 x10^3/uL (0.0-0.2); EOSINOPHILS % (AUTO) 3.2 % (0.9-2.9); HEMATOCRIT 22.6 % (42.0-54.0); HEMOGLOBIN 7.8 g/dL (13.5-18.0); LYMPHOCYTES # (AUTO) 1.2 X10^3/uL (1.3-2.9); MEAN CORPUSCULAR HEMOGLOBIN 28.8 pg (27.0-34.0); MEAN CORPUSCULAR HGB CONC 34.3 g/dL (33.0-35.0); MEAN CORPUSCULAR VOLUME 83.9 fL (80.0-100.0); MEAN PLATELET VOLUME 6.8 fL (7.4-11.0); MONOCYTES # (AUTO) 0.6 x10^3/uL (0.3-0.8); MONOCYTES % (AUTO) 4.3 % (0.0-13.0); NEUTROPHILS # (AUTO) 12.1 x10^3/uL (2.2-4.8); NEUTROPHILS % (AUTO) 83.5 % (42.0-75.0); PLATELET COUNT 641 X10^3/uL (150.0-450.0); RED BLOOD COUNT 2.69 X10^6/uL (4.7-6.0); RED CELL DISTRIBUTION WIDTH 17.1 % (11.6-16.5); WHITE BLOOD COUNT 14.4 X10^3/uL (3.6-10.0)
[2024-11-01 06:00] LABS: ALBUMIN 1.4 g/dL (3.4-5.0); CARBON DIOXIDE 22.6 mmol/L (21-32); COR CA(FOR HYPOALB) 10.1 mg/dL (8.5-10.1); CREATININE 3.57 mg/dL (0.70-1.30); POTASSIUM 4.4 mmol/L (3.5-5.1)
[2024-11-01] MEDS ORDERED: PHARMACY COMMENT IV NR (08:00)
--- NOTE | 2024-11-01 19:19 | NOTE.SOAP ---
Soap Note Note for Day of Date of Exam: 11/01/24 Subjective Data Subjective Data: SCr improved overnight. Still anemic and tired. ID following via Tele-health. JANICE overnight. No new complaints this AM. Daptomycin started yesterday. Pending wray-spine MRI next week based on SCr. Objective Data Objective Data: WD, WN male in NAD. Resting in bed and easily awakened. RRR. CTA b/l. Bowel sounds present, belly soft/NT/ND. Mood/affect appropriate. Assessment Assessment: 1. MRSA bacteremia 2. MRSA pyelonephritis/UTI 3. LEONORA 4. Severe sepsis (LEONORA, above infections, HR>90, WBCs up) Plan Plan: IVFs, daptomycin, appreciate ID recs, no changes today.
[2024-11-02 04:56] LABS: BASOPHILS # (AUTO) 0.1 X10^3/uL (0.0-0.1); BASOPHILS % (AUTO) 0.6 % (0.2-1.0); EOSINOPHILS # (AUTO) 0.7 x10^3/uL (0.0-0.2); EOSINOPHILS % (AUTO) 4.8 % (0.9-2.9); HEMATOCRIT 22.8 % (42.0-54.0); HEMOGLOBIN 7.6 g/dL (13.5-18.0); LYMPHOCYTES # (AUTO) 1.5 X10^3/uL (1.3-2.9); MEAN CORPUSCULAR HEMOGLOBIN 28.1 pg (27.0-34.0); MEAN CORPUSCULAR HGB CONC 33.4 g/dL (33.0-35.0); MEAN CORPUSCULAR VOLUME 84.2 fL (80.0-100.0); MEAN PLATELET VOLUME 6.7 fL (7.4-11.0); MONOCYTES # (AUTO) 0.8 x10^3/uL (0.3-0.8); MONOCYTES % (AUTO) 5.5 % (0.0-13.0); NEUTROPHILS # (AUTO) 11.7 x10^3/uL (2.2-4.8); NEUTROPHILS % (AUTO) 79.1 % (42.0-75.0); PLATELET COUNT 629 X10^3/uL (150.0-450.0); RED BLOOD COUNT 2.71 X10^6/uL (4.7-6.0); RED CELL DISTRIBUTION WIDTH 17.2 % (11.6-16.5); WHITE BLOOD COUNT 14.8 X10^3/uL (3.6-10.0)
[2024-11-02 05:02] LABS: ERYTHROCYTE SEDIMENTATION RATE 48 MM/HOUR (0-15)
[2024-11-02 05:05] LABS: ALBUMIN 1.4 g/dL (3.4-5.0); CARBON DIOXIDE 19.5 mmol/L (21-32); COR CA(FOR HYPOALB) 10.1 mg/dL (8.5-10.1); CREATININE 2.94 mg/dL (0.70-1.30); MAGNESIUM 1.3 mg/dL (2.0-2.9); POTASSIUM 3.9 mmol/L (3.5-5.1); TOTAL PROTEIN 5.9 g/dL (6.4-8.2)
[2024-11-02] MEDS: MAG-OX TAB PO SCH (09:58)
[2024-11-02] MEDS: K-DUR TAB 20 MEQ PO SCH (09:58)
--- NOTE | 2024-11-02 14:52 | NOTE.SOAP ---
Soap Note Note for Day of Date of Exam: 11/02/24 Subjective Data Subjective Data: No overnight events. Patient denies new complaints. Hemoglobin still very low. Objective Data Objective Data: Well-developed, well-nourished male in no acute distress. Heart regular rate and rhythm. Lungs are clear. Mood down but appropriate Assessment Assessment: 1. MRSA bacteremia 2. MRSA pyelonephritis/UTI 3. LEONORA 4. Severe sepsis (LEONORA, above infections, HR>90, WBCs up) Plan Plan: Appreciate ID recommendations. Continue IV antibiotics. Continue IV hydration. Working towards MRIs of the spine.
[2024-11-02] MEDS: CONSULT PHARMACY - POTASSIUM & MAGNESIUM XX SCH (18:43)
[2024-11-03 05:03] LABS: BASOPHILS # (AUTO) 0.1 X10^3/uL (0.0-0.1); EOSINOPHILS # (AUTO) 0.8 x10^3/uL (0.0-0.2); EOSINOPHILS % (AUTO) 5.2 % (0.9-2.9); HEMATOCRIT 21.2 % (42.0-54.0); HEMOGLOBIN 7.2 g/dL (13.5-18.0); LYMPHOCYTES # (AUTO) 1.5 X10^3/uL (1.3-2.9); LYMPHOCYTES % (AUTO) 10.6 % (21.0-51.0); MEAN CORPUSCULAR HEMOGLOBIN 28.5 pg (27.0-34.0); MEAN CORPUSCULAR VOLUME 83.7 fL (80.0-100.0); MONOCYTES # (AUTO) 0.6 x10^3/uL (0.3-0.8); MONOCYTES % (AUTO) 3.9 % (0.0-13.0); NEUTROPHILS # (AUTO) 11.4 x10^3/uL (2.2-4.8); NEUTROPHILS % (AUTO) 79.3 % (42.0-75.0); PLATELET COUNT 623 X10^3/uL (150.0-450.0); RED BLOOD COUNT 2.54 X10^6/uL (4.7-6.0); RED CELL DISTRIBUTION WIDTH 17.2 % (11.6-16.5); WHITE BLOOD COUNT 14.4 X10^3/uL (3.6-10.0)
[2024-11-03 05:24] LABS: ALBUMIN 1.4 g/dL (3.4-5.0); CALCIUM 7.8 mg/dL (8.5-10.1); CARBON DIOXIDE 20.8 mmol/L (21-32); COR CA(FOR HYPOALB) 9.9 mg/dL (8.5-10.1); CREATININE 2.85 mg/dL (0.70-1.30); POTASSIUM 4.4 mmol/L (3.5-5.1); TOTAL PROTEIN 5.9 g/dL (6.4-8.2)
--- NOTE | 2024-11-03 10:18 | PCM.PROG ---
Progress Note Progress Note for Day of Date of Exam: 11/03/24 Subjective Subjective: Patient seen at bedside, no acute events overnight. He is currently admitted for anemia, GI bleed, UTI, electrolyte imbalance, and MRSA bacteremia. [facility] has been consulted for ID and Nephro recommendations. He has been on IV fluids along with IV Daptomycin. His renal function is slowly improving. Due to MRSA bacteremia, there's a concern that it could be endocarditis or discitis as patient was complaining of back pain initially. He denies back pain today. MRI with contrast is pending but due to patient's renal function, not able to perform with contrast at this time. All these findings were discussed with patient, and he is adamant about going home. Labs/imaging reviewed: -WBC 14.4 Hgb 7.2 K 4.4 BUN/Cr 38/2.85 Mag 1.3 -Urine Cx positive for MRSA -Blood Cx x2 positive for MRSA, repeat 10/31 x 1 positive, repeat 11/02 blood cultures pending -FOBT +, EGD revealed erosive gastritis -CTAP: right sided fullness, perinephric stranding -Renal U/S: The kidneys are slightly hyperechoic and have elevated renal resistive indices. Consider changes of chronic medical renal disease. No hydronephrosis. -Echo EF 50-55% Plan: Will order MRI-cervical, thoracic and lumbar without contrast. Follow [facility] recommendations. Continue hydration, replace electrolytes. Continue IV antibiotics. Follow repeat cultures. Monitor H&H. Continue current medications. Continue protonix and carafate. PT/OT as tolerated. Strict I&Os, daily weights. Continue home medications. Avoid nephrotoxic medications. Monitor AM labs/imaging. Time spent for clinical assessment, reviewing labs/imaging, physical exam, decision making and documentation greater than 45 mins. Past Medical Family Social History Allergies: Allergies No Known Allergies Allergy (Verified 07/15/24 13:40) Vital Signs and I&O's Vital Signs: Vital Signs Temperature 98.2 F Temperature 98.9 F Pulse Rate [Left Brachial] 82 Pulse Rate [Left Brachial] 86 Respiratory Rate 18 Respiratory Rate 20 Blood Pressure [Left Arm] 191/97 Blood Pressure [Left Arm] 175/92 O2 Sat by Pulse Oximetry 95 O2 Sat by Pulse Oximetry 94 Intake and Output: Intake & Output 02/07/11/01/24 11/02/24 11/03/24 23:59 23:59 23:59 23:59 Intake Total 5968 / 5968 5747 / 5747 4977 / 4977 1610 / 1610 Output Total 2750 / 2750 1300 / 1300 1550 / 1550 1350 / 1350 Balance 3218 / 3218 4447 / 4447 3427 / 3427 260 / 260 Physical Exam Oriented: Normal Eyes: Normal Ear: Normal Nose: Normal Throat: Normal Respiratory: Generalized and Diminished Cardiovascular: Normal and Edema Auscultation: Bowel Sounds: Normal Palpation: Normal Tenderness: Normal Skin: Decreased Turgur Musculoskeletal: Normal Psychiatric: Normal Mood Description: Calm and Appropriate Affect: Normal Speech Pattern: Clear and Appropriate Laboratory and Diagnostics 11/03/24 04:25 11/03/24 04:25 Labs: 10/31/24 09:30 Blood Blood Culture - Final Methicillin Resis Staph Aureus 10/31/24 09:40 Blood Blood Culture - Preliminary 10/28/24 19:35 Stool Stool Culture - Final 10/28/24 19:35 Stool - Final 10/28/24 00:25 Urine,Clean Catch Urine Culture - Final Methicillin Resis Staph Aureus 10/27/24 15:46 Blood Blood Culture Gram Stain - Final 10/27/24 15:46 Blood Blood Culture - Final Methicillin Resis Staph Aureus 10/27/24 15:35 Blood Blood Culture Gram Stain - Final 10/27/24 15:35 Blood Blood Culture - Final Methicillin Resis Staph Aureus Laboratory WBC 14.4 X10^3/uL (3.6-10.0) H 11/03/24 04: RBC 2.54 X10^6/uL (4.7-6.0) L 11/03/24 04:25 Hgb 7.2 g/dL (13.5-18.0) L 11/03/24 04: Hct 21.2 % (42.0-54.0) L 11/03/24 04: MCV 83.7 fL (80.0-100.0) 11/03/24 04:25 MCH 28.5 pg (27.0-34.0) 11/03/24 04: MCHC 34.0 g/dL (33.0-35.0) 11/03/24 04: RDW 17.2 % (11.6-16.5) H 11/03/24 04:25 Plt Count 623 X10^3/uL (150.0-450.0) H 11/03/24 04:25 Plt Count Comment Increased (ADEQUATE) 10/29/24 04:36 MPV 7.0 fL (7.4-11.0) L 11/03/24 04:25 Neut % (Auto) 79.3 % (42.0-75.0) H 11/03/24 04:25 Lymph % (Auto) 10.6 % (21.0-51.0) L 11/03/24 04:25 [place] % (Auto) 3.9 % (0.0-13.0) 11/03/24 04:25 Eos % (Auto) 5.2 % (0.9-2.9) H 11/03/24 04:25 Baso % (Auto) 1.0 % (0.2-1.0) 11/03/24 04:25 Neut # (Auto) 11.4 x10^3/uL (2.2-4.8) H 11/03/24 04:25 Lymph # (Auto) 1.5 X10^3/uL (1.3-2.9) 11/03/24 04:25 [place] # (Auto) 0.6 x10^3/uL (0.3-0.8) 11/03/24 04:25 Eos # (Auto) 0.8 x10^3/uL (0.0-0.2) H 11/03/24 04:25 Baso # (Auto) 0.1 X10^3/uL (0.0-0.1) 11/03/24 04:25 Absolute Nucleated RBC 0.0 /100WBC 11/03/24 04:25 Total Counted 100 10/29/24 04:36 Neutrophils % (Manual) 92 % (39-76) H 10/29/24 04:36 Lymphocytes % (Manual) 5 % (13-43) L 10/29/24 04:36 Monocytes % (Manual) 3 % (4-9) L 10/29/24 04:36 Eosinophils % (Manual) 1 % (0-6) 10/28/24 04:25 Plt Morphology Comment Normal (NORMAL) 10/29/24 04:36 RBC Morphology Abnormal (NORMAL) 10/29/24 04:36 Anisocytosis Slight A 10/29/24 04:36 ESR 48 MM/HOUR (0-15) H 11/02/24 04:40 Absolute Retic 0.0876 10^6/uL 10/27/24 15:35 Percent Retic 3.93 % (0.8-2.2) H 10/27/24 15:35 Sodium 136 mmol/L (136-145) 11/03/24 04:25 Corrected Sodium 138 mmol/L (136-145) 11/03/24 04:25 Potassium 4.4 mmol/L (3.5-5.1) 11/03/24 04:25 Chloride 105 mmol/L (98-107) 11/03/24 04:25 Carbon Dioxide 20.8 mmol/L (21-32) L 11/03/24 04:25 BUN 38 mg/dL (7-18) H 11/03/24 04:25 Creatinine 2.85 mg/dL (0.70-1.30) H 11/03/24 04:25 Est GFR (MDRD) Af Amer 30 (>60) L 11/03/24 04:25 Est GFR (MDRD) Non-Af 25 (>60) L 11/03/24 04:25 Glucose 176 mg/dL (65-99) H 11/03/24 04:25 POC Glucose (mg/dL) 170 mg/dL (65-99) H 11/03/24 05:03 Hemoglobin A1c 9.2 % 10/28/24 04:25 Lactic Acid 1.7 mmol/L (0.4-2.0) 10/27/24 15:35 Calcium 7.8 mg/dL (8.5-10.1) L 11/03/24 04:25 Corrected Calcium 9.9 mg/dL (8.5-10.1) 11/03/24 04:25 Magnesium 1.3 mg/dL (2.0-2.9) L 11/03/24 04:25 Iron 70 ug/dL (50-175) 10/27/24 15:35 TIBC 207 ug/dL (250-450) L 10/27/24 15:35 Transferrin 164 mg/dL (202-364) L 10/27/24 15:35 Ferritin 881 ng/mL (26-388) H 10/27/24 15:35 Total Bilirubin 0.30 mg/dL (0.2-1.0) 11/03/24 04:25 AST 15 Units/L (15-37) 11/03/24 04:25 ALT 16 Units/L (12-78) 11/03/24 04:25 Alkaline Phosphatase 133 Units/L (46-116) H 11/03/24 04:25 Creatine Kinase 17 Units/L (39-308) L 11/01/24 05:03 Troponin I High Sens 6.2 ng/L (4.0-60.0) 10/27/24 21:20 C-Reactive Protein 48.90 mg/L (0-3.0) H 11/02/24 04:40 B-Natriuretic Peptide 839 pg/mL (0-79) H 10/28/24 11:49 Total Protein 5.9 g/dL (6.4-8.2) L 11/03/24 04:25 Albumin 1.4 g/dL (3.4-5.0) L 11/03/24 04:25 Globulin 4.5 g/dL (2.5-4.5) 11/03/24 04:25 Albumin/Globulin Ratio 0.3 Ratio (1.1-2.1) L 11/03/24 04:25 Amylase 31 Units/L (25-115) 10/28/24 04:25 Lipase 34 Units/L (16-77) 10/28/24 04:25 Vitamin B12 1140 pg/mL (193-986) H 10/27/24 15:35 Methylmalonic Acid 1591 nmol/L (55-335) H 10/27/24 15:35 Folate 7.5 ng/mL (>8.6) L 10/27/24 15:35 Homocysteine 18.4 umol/L (<11.4) H 10/27/24 15:35 Specimen Type Clean catch urine 10/28/24 00:25 Urine Color Yellow (YELLOW) 10/28/24 00:25 Urine Appearance Cloudy (CLEAR) 10/28/24 00:25 Urine pH 5.0 (5.0 - 8.0) 10/28/24 00:25 Ur Specific [place] 1.015 (1.000-1.030) 10/28/24 00:25 Urine Protein 3+ (NEGATIVE) 10/28/24 00:25 Urine Glucose (UA) 4+ (NEGATIVE) 10/28/24 00:25 Urine Ketones Negative (NEGATIVE) 10/28/24 00:25 Urine Blood 4+ (NEGATIVE) 10/28/24 00:25 Urine Nitrite Negative (NEGATIVE) 10/28/24 00:25 Urine Bilirubin Negative (NEGATIVE) 10/28/24 00:25 Urine Urobilinogen Normal (NORMAL) 10/28/24 00:25 Ur Leukocyte Esterase 3+ (NEGATIVE) 10/28/24 00:25 Urine RBC 5-10 /HPF (0-3) A 10/28/24 00:25 Urine WBC Tntc /HPF (0-5) A 10/28/24 00:25 Ur Squamous Epith Cells Rare /HPF (NEGATIVE) 10/28/24 00:25 Amorphous Sediment Trace /HPF (NEGATIVE) 10/28/24 00:25 Urine Bacteria Trace /HPF (NEGATIVE) 10/28/24 00:25 Ur Culture Indicated? Yes/culture set up 10/28/24 00:25 Urine Osmolality 267 mOsm/kg (50-1200) 10/30/24 12:42 Ur Random Sodium 83 mmol/L (40-220) 10/30/24 12:42 Urine Creatinine < 13 mg/dL (40-278) L 10/30/24 12:42 Stl Occult Blood (IFOB) Positive (NEGATIVE) A 10/28/24 08:47 Stool for White Cells Positive (NEGATIVE) A 10/28/24 19:35 Stl C. diff Tox B Gene Negative (NEGATIVE) 10/28/24 19:35 Stl C. diff [id number] Presumptive negative (NEGATIVE) 10/28/24 19:35 Random Vancomycin 12.0 ug/mL 10/30/24 08:17 Acetone, Semi-Quant Negative (NEGATIVE) 10/28/24 04:25 Rheumatoid Factor Negative (NEGATIVE) 10/28/24 04:25 MUNDO Screen Positive (NEGATIVE) H 10/28/24 04:25 MUNDO Titer 1:40 titer H 10/28/24 04:25 MUNDO Pattern Nuclear, speckled H 10/28/24 04:25 Cryptosporid parvum Ag Negative (NEGATIVE) 10/28/24 19:35 Giardia lamblia Ag Negative (NEGATIVE) 10/28/24 19:35 Resp Viral Panel (PCR) See scanned report 10/28/24 15:10 Blood Type B NEGATIVE 11/02/24 10:00 Antibody Screen Negative 11/02/24 10:00 Crossmatch See Detail 11/02/24 10:00 Plan (1) GI bleed: Status: Acute Qualifiers: GI bleed type/associated pathology: melena Qualified Code(s): K92.1 - Melena (2) Bacteremia: Status: Acute (3) CHF exacerbation: Status: Acute Qualifiers: Heart failure type: unspecified Qualified Code(s): I50.9 - Heart failure, unspecified (4) Pyelonephritis: Status: Acute (5) Symptomatic anemia: Status: Acute (6) Acute renal failure: Status: Acute Qualifiers: Acute renal failure type: unspecified Qualified Code(s): N17.9 - Acute kidney failure, unspecified Plan: IVF, monitor renal function hold nephrotoxic agents (7) Hyponatremia: Status: Acute Plan: IVF (8) Hyperosmolar hyperglycemic state (HHS): Status: Acute (9) UTI (urinary tract infection): Status: Acute Qualifiers: Hematuria presence: without hematuria Urinary tract infection type: a cute cystitis Qualified Code(s): N30.00 - Acute cystitis without hematuria (10) CAD (coronary artery disease): Status: Chronic Qualifiers: Associated angina: unspecified whether angina present Coronary Disease- Associated Artery/Lesion type: unspecified vessel or lesion type [place] vs. transplanted heart: unspecified whether [place] or transplanted heart Qualified Code(s): I25.10 - Atherosclerotic heart disease of [place] coronary artery without angina pectoris (11) Hyperlipidemia: Status: Chronic Qualifiers: Hyperlipidemia type: mixed hyperlipidemia Qualified Code(s): E78.2 - Mixed hyperlipidemia (12) Hypertension: Status: Chronic Qualifiers: Hypertension type: primary hypertension Qualified Code(s): I10 - Essential (primary) hypertension (13) Type 2 diabetes mellitus: Status: Chronic Qualifiers: Diabetes mellitus complication status: with other specified complication Diabetes mellitus terminal manager insulin use: without terminal manager use Qualified Code(s): E11.69 - Type 2 diabetes mellitus with other specified complication (14) Hypomagnesemia: Status: Acute
[2024-11-03] MEDS: MAGNESIUM SULFATE 1 GRAM/100 mL PREMIX 1 G/100 ML BAG IV SCH (10:43)
[2024-11-03 12:12] LABS: HEMATOCRIT 22.7 % (42.0-54.0); HEMOGLOBIN 7.7 g/dL (13.5-18.0)
[2024-11-03] MEDS: LASIX PO ONE (15:22)
[2024-11-03] MEDS: LASIX ONE (16:34)
--- NOTE | 2024-11-03 23:42 | RAD ---
EXAM: CHEST, 1 VIEW HISTORY: SOB, CHF; COMPARISON: October 29, 2024 TECHNIQUE: Chest radiographic imaging, AP portable projection, 1 image FINDINGS: Moderate cardiomegaly. Status post median sternotomy/CABG. Increased interstitial markings in the hilar regions. No focal airspace disease. Small bilateral pleural effusions. No pneumothorax. No acute osseous abnormality. IMPRESSION: Findings are most consistent with acute CHF resulting in small bilateral pleural effusions. THIS IS AN ELECTRONICALLY VERIFIED FINAL REPORT 11/03/2024 11:39 PM - Electronically signed by Antwon Gabriel MD
[2024-11-04 05:10] LABS: BASOPHILS # (AUTO) 0.1 X10^3/uL (0.0-0.1); EOSINOPHILS # (AUTO) 0.6 x10^3/uL (0.0-0.2); EOSINOPHILS % (AUTO) 4.4 % (0.9-2.9); HEMATOCRIT 21.4 % (42.0-54.0); HEMOGLOBIN 7.2 g/dL (13.5-18.0); LYMPHOCYTES # (AUTO) 1.6 X10^3/uL (1.3-2.9); LYMPHOCYTES % (AUTO) 11.3 % (21.0-51.0); MEAN CORPUSCULAR HEMOGLOBIN 28.3 pg (27.0-34.0); MEAN CORPUSCULAR HGB CONC 33.7 g/dL (33.0-35.0); MEAN CORPUSCULAR VOLUME 84.1 fL (80.0-100.0); MEAN PLATELET VOLUME 6.9 fL (7.4-11.0); MONOCYTES # (AUTO) 0.4 x10^3/uL (0.3-0.8); MONOCYTES % (AUTO) 3.1 % (0.0-13.0); NEUTROPHILS # (AUTO) 11.1 x10^3/uL (2.2-4.8); NEUTROPHILS % (AUTO) 80.2 % (42.0-75.0); PLATELET COUNT 627 X10^3/uL (150.0-450.0); RED BLOOD COUNT 2.55 X10^6/uL (4.7-6.0); RED CELL DISTRIBUTION WIDTH 17.2 % (11.6-16.5); WHITE BLOOD COUNT 13.8 X10^3/uL (3.6-10.0)
[2024-11-04 05:22] LABS: ALBUMIN 1.4 g/dL (3.4-5.0); CALCIUM 8.2 mg/dL (8.5-10.1); CARBON DIOXIDE 19.6 mmol/L (21-32); COR CA(FOR HYPOALB) 10.3 mg/dL (8.5-10.1); CREATININE 2.82 mg/dL (0.70-1.30); MAGNESIUM 1.7 mg/dL (2.0-2.9); POTASSIUM 4.7 mmol/L (3.5-5.1); TOTAL PROTEIN 5.8 g/dL (6.4-8.2)
[2024-11-04] MEDS ORDERED: CONSULT PHARMACY - POTASSIUM & MAGNESIUM XX SCH (07:00)
[2024-11-04] MEDS: MAGNESIUM SULFATE 1 GRAM/100 mL PREMIX 1 G/100 ML BAG IV NR (08:36)
[2024-11-04] MEDS ORDERED: MAG-OX TAB PO SCH (09:00)
[2024-11-04] MEDS ORDERED: LASIX PO SCH (10:05)
--- NOTE | 2024-11-04 10:10 | PCM.PROG ---
Progress Note Progress Note for Day of Date of Exam: 11/04/24 Subjective Subjective: Patient seen at bedside, no acute events overnight. He was not able to do the MRI yesterday due to feeling SOB and not able to lay flat. He was given his home dose lasix and felt better after. CXR showed acute CHF with effusions. He had been getting NS at 175cc/hr as per Nephro. Fluids were stopped for a few hours and then later restarted at 100cc/hr. He was on 2L yesterday but now on room air. His Hgb is 7.2 today. Denies any bleeding. He is currently admitted for anemia, GI bleed, UTI, electrolyte imbalance, and MRSA bacteremia. [facility] has been consulted for ID and Nephro r ecommendations. He has been on IV fluids along with IV Daptomycin. His renal function is slowly improving. Due to MRSA bacteremia, there's a concern that it could be endocarditis or discitis as patient was complaining of back pain initially. He denies back pain today. MRI pending. He also has MUNDO positive, will need outpatient Rheum work-up. Labs/imaging reviewed: -WBC 13.8 Hgb 7.2 K 4.7 BUN/Cr 37/2.82 Mag 1.7 -Urine Cx positive for MRSA -Blood Cx x2 positive for MRSA, repeat 10/31 x 1 MRSA, repeat 11/02 blood cultures pending -FOBT +, EGD revealed erosive gastritis -CTAP: right sided fullness, perinephric stranding -Renal U/S: The kidneys are slightly hyperechoic and have elevated renal resistive indices. Consider changes of chronic medical renal disease. No hydronephrosis. -Echo EF 50-55% Plan: Transfuse 2 units PRBCS, stop IVF. Give IV lasix 20 mg between the units. Follow MRI-cervical, thoracic and lumbar without contrast results. Follow [facility] recommendations. Replace electrolytes. Continue IV antibiotics. Follow repeat cultures. Monitor H&H. Continue current medications. Continue protonix and carafate. PT/OT as tolerated. Strict I&Os, daily weights. Continue home medications. Avoid nephrotoxic medications. Monitor AM labs/imaging. Time spent for clinical assessment, reviewing labs/imaging, physical exam, decision making and documentation greater than 45 mins. Past Medical Family Social History Allergies: Allergies No Known Allergies Allergy (Verified 07/15/24 13:40) Vital Signs and I&O's Vital Signs: Vital Signs Temperature 98.0 F Temperature 98.4 F Pulse Rate [Left Brachial] 85 Pulse Rate [Left Brachial] 82 Respiratory Rate 21 Respiratory Rate 20 Blood Pressure [Left Arm] 173/95 Blood Pressure [Left Arm] 137/67 O2 Sat by Pulse Oximetry 97 O2 Sat by Pulse Oximetry 97 Intake and Output: Intake & Output 11/01/24 11/02/24 11/03/24 11/04/24 23:59 23:59 23:59 23:59 Intake Total 5747 / 5747 4977 / 4977 5309 / 5309 180 / 180 Output Total 1300 / 1300 1550 / 1550 3600 / 3600 200 / 200 Balance 4447 / 4447 3427 / 3427 1709 / 1709 -20 / -20 Physical Exam Oriented: Normal Eyes: Normal Ear: Normal Nose: Normal Throat: Normal Respiratory: Generalized and [place] Cardiovascular: Normal and Edema Auscultation: Bowel Sounds: Normal Tenderness: Normal Skin: Normal Musculoskeletal: Normal Psychiatric: Normal Mood Description: Calm and Appropriate Affect: Normal Speech Pattern: Clear and Appropriate Laboratory and Diagnostics 11/04/24 04:32 11/04/24 04:32 Labs: 10/31/24 09:30 Blood Blood Culture - Final Methicillin Resis Staph Aureus 10/31/24 09:40 Blood Blood Culture - Preliminary 10/28/24 19:35 Stool Stool Culture - Final 10/28/24 19:35 Stool - Final 10/28/24 00:25 Urine,Clean Catch Urine Culture - Final Methicillin Resis Staph Aureus 10/27/24 15:46 Blood Blood Culture Gram Stain - Final 10/27/24 15:46 Blood Blood Culture - Final Methicillin Resis Staph Aureus 10/27/24 15:35 Blood Blood Culture Gram Stain - Final 10/27/24 15:35 Blood Blood Culture - Final Methicillin Resis Staph Aureus Laboratory WBC 13.8 X10^3/uL (3.6-10.0) H 11/04/24 04:32 RBC 2.55 X10^6/uL (4.7-6.0) L 11/04/24 04:32 Hgb 7.2 g/dL (13.5-18.0) L 11/04/24 04:32 Hct 21.4 % (42.0-54.0) L 11/04/24 04:32 MCV 84.1 fL (80.0-100.0) 11/04/24 04:32 MCH 28.3 pg (27.0-34.0) 11/04/24 04:32 MCHC 33.7 g/dL (33.0-35.0) 11/04/24 04:32 RDW 17.2 % (11.6-16.5) H 11/04/24 04:32 Plt Count 627 X10^3/uL (150.0-450.0) H 11/04/24 04:32 Plt Count Comment Increased (ADEQUATE) 10/29/24 04:36 MPV 6.9 fL (7.4-11.0) L 11/04/24 04:32 Neut % (Auto) 80.2 % (42.0-75.0) H 11/04/24 04:32 Lymph % (Auto) 11.3 % (21.0-51.0) L 11/04/24 04:32 [place] % (Auto) 3.1 % (0.0-13.0) 11/04/24 04:32 Eos % (Auto) 4.4 % (0.9-2.9) H 11/04/24 04:32 Baso % (Auto) 1.0 % (0.2-1.0) 11/04/24 04:32 Neut # (Auto) 11.1 x10^3/uL (2.2-4.8) H 11/04/24 04:32 Lymph # (Auto) 1.6 X10^3/uL (1.3-2.9) 11/04/24 04:32 [place] # (Auto) 0.4 x10^3/uL (0.3-0.8) 11/04/24 04:32 Eos # (Auto) 0.6 x10^3/uL (0.0-0.2) H 11/04/24 04:32 Baso # (Auto) 0.1 X10^3/uL (0.0-0.1) 11/04/24 04:32 Absolute Nucleated RBC 0.0 /100WBC 11/04/24 04:32 Total Counted 100 10/29/24 04:36 Neutrophils % (Manual) 92 % (39-76) H 10/29/24 04:36 Lymphocytes % (Manual) 5 % (13-43) L 10/29/24 04:36 Monocytes % (Manual) 3 % (4-9) L 10/29/24 04:36 Eosinophils % (Manual) 1 % (0-6) 10/28/24 04:25 Plt Morphology Comment Normal (NORMAL) 10/29/24 04:36 RBC Morphology Abnormal (NORMAL) 10/29/24 04:36 Anisocytosis Slight A 10/29/24 04:36 ESR 48 MM/HOUR (0-15) H 11/02/24 04:40 Absolute Retic 0.0876 10^6/uL 10/27/24 15:35 Percent Retic 3.93 % (0.8-2.2) H 10/27/24 15:35 Sodium 136 mmol/L (136-145) 11/04/24 04:32 Corrected Sodium 138 mmol/L (136-145) 11/04/24 04:32 Potassium 4.7 mmol/L (3.5-5.1) 11/04/24 04:32 Chloride 106 mmol/L (98-107) 11/04/24 04:32 Carbon Dioxide 19.6 mmol/L (21-32) L 11/04/24 04:32 BUN 37 mg/dL (7-18) H 11/04/24 04:32 Creatinine 2.82 mg/dL (0.70-1.30) H 11/04/24 04:32 Est GFR (MDRD) Af Amer 30 (>60) L 11/04/24 04:32 Est GFR (MDRD) Non-Af 25 (>60) L 11/04/24 04:32 Glucose 197 mg/dL (65-99) H 11/04/24 04:32 POC Glucose (mg/dL) 172 mg/dL (65-99) H 11/04/24 05:20 Hemoglobin A1c 9.2 % 10/28/24 04:25 Lactic Acid 1.7 mmol/L (0.4-2.0) 10/27/24 15:35 Calcium 8.2 mg/dL (8.5-10.1) L 11/04/24 04:32 Corrected Calcium 10.3 mg/dL (8.5-10.1) H 11/04/24 04:32 Magnesium 1.7 mg/dL (2.0-2.9) L 11/04/24 04:32 Iron 70 ug/dL (50-175) 10/27/24 15:35 TIBC 207 ug/dL (250-450) L 10/27/24 15:35 Transferrin 164 mg/dL (202-364) L 10/27/24 15:35 Ferritin 881 ng/mL (26-388) H 10/27/24 15:35 Total Bilirubin 0.30 mg/dL (0.2-1.0) 11/04/24 04:32 AST 12 Units/L (15-37) L 11/04/24 04:32 ALT 18 Units/L (12-78) 11/04/24 04:32 Alkaline Phosphatase 131 Units/L (46-116) H 11/04/24 04:32 Creatine Kinase 17 Units/L (39-308) L 11/01/24 05:03 Troponin I High Sens 6.2 ng/L (4.0-60.0) 10/27/24 21:20 C-Reactive Protein 48.90 mg/L (0-3.0) H 11/02/24 04:40 B-Natriuretic Peptide 839 pg/mL (0-79) H 10/28/24 11:49 Total Protein 5.8 g/dL (6.4-8.2) L 11/04/24 04:32 Albumin 1.4 g/dL (3.4-5.0) L 11/04/24 04:32 Globulin 4.4 g/dL (2.5-4.5) 11/04/24 04:32 Albumin/Globulin Ratio 0.3 Ratio (1.1-2.1) L 11/04/24 04:32 Amylase 31 Units/L (25-115) 10/28/24 04:25 Lipase 34 Units/L (16-77) 10/28/24 04:25 Vitamin B12 1140 pg/mL (193-986) H 10/27/24 15:35 Methylmalonic Acid 1591 nmol/L (55-335) H 10/27/24 15:35 Folate 7.5 ng/mL (>8.6) L 10/27/24 15:35 Homocysteine 18.4 umol/L (<11.4) H 10/27/24 15:35 Specimen Type Clean catch urine 10/28/24 00:25 Urine Color Yellow (YELLOW) 10/28/24 00:25 Urine Appearance Cloudy (CLEAR) 10/28/24 00:25 Urine pH 5.0 (5.0 - 8.0) 10/28/24 00:25 Ur Specific [place] 1.015 (1.000-1.030) 10/28/24 00:25 Urine Protein 3+ (NEGATIVE) 10/28/24 00:25 Urine Glucose (UA) 4+ (NEGATIVE) 10/28/24 00:25 Urine Ketones Negative (NEGATIVE) 10/28/24 00:25 Urine Blood 4+ (NEGATIVE) 10/28/24 00:25 Urine Nitrite Negative (NEGATIVE) 10/28/24 00:25 Urine Bilirubin Negative (NEGATIVE) 10/28/24 00:25 Urine Urobilinogen Normal (NORMAL) 10/28/24 00:25 Ur Leukocyte Esterase 3+ (NEGATIVE) 10/28/24 00:25 Urine RBC 5-10 /HPF (0-3) A 10/28/24 00:25 Urine WBC Tntc /HPF (0-5) A 10/28/24 00:25 Ur Squamous Epith Cells Rare /HPF (NEGATIVE) 10/28/24 00:25 Amorphous Sediment Trace /HPF (NEGATIVE) 10/28/24 00:25 Urine Bacteria Trace /HPF (NEGATIVE) 10/28/24 00:25 Ur Culture Indicated? Yes/culture set up 10/28/24 00:25 Urine Osmolality 267 mOsm/kg (50-1200) 10/30/24 12:42 Ur Random Sodium 83 mmol/L (40-220) 10/30/24 12:42 Urine Creatinine < 13 mg/dL (40-278) L 10/30/24 12:42 Stl Occult Blood (IFOB) Positive (NEGATIVE) A 10/28/24 08:47 Stool for White Cells Positive (NEGATIVE) A 10/28/24 19:35 Stl C. diff Tox B Gene Negative (NEGATIVE) 10/28/24 19:35 Stl C. diff [id number] Presumptive negative (NEGATIVE) 10/28/24 19:35 Random Vancomycin 12.0 ug/mL 10/30/24 08:17 Acetone, Semi-Quant Negative (NEGATIVE) 10/28/24 04:25 Rheumatoid Factor Negative (NEGATIVE) 10/28/24 04:25 MUNDO Screen Positive (NEGATIVE) H 10/28/24 04:25 MUNDO Titer 1:40 titer H 10/28/24 04:25 MUNDO Pattern Nuclear, speckled H 10/28/24 04:25 Intrins Factor Block Ab Negative (Negative) 10/27/24 15:35 Cryptosporid parvum Ag Negative (NEGATIVE) 10/28/24 19:35 Giardia lamblia Ag Negative (NEGATIVE) 10/28/24 19:35 Resp Viral Panel (PCR) See scanned report 10/28/24 15:10 Blood Type B NEGATIVE 11/02/24 10:00 Antibody Screen Negative 11/02/24 10:00 Crossmatch See Detail 11/02/24 10:00 Plan (1) GI bleed: Status: Acute Qualifiers: GI bleed type/associated pathology: melena Qualified Code(s): K92.1 - Melena (2) Bacteremia: Status: Acute (3) CHF exacerbation: Status: Acute Qualifiers: Heart failure type: unspecified Qualified Code(s): I50.9 - Heart failure, unspecified (4) Pyelonephritis: Status: Acute (5) Symptomatic anemia: Status: Acute (6) Acute renal failure: Status: Acute Qualifiers: Acute renal failure type: unspecified Qualified Code(s): N17.9 - Acute kidney failure, unspecified (7) Hyponatremia: Status: Acute (8) UTI (urinary tract infection): Status: Acute Qualifiers: Hematuria presence: without hematuria Urinary tract infection type: acute cystitis Qualified Code(s): N30.00 - Acute cystitis without hematuria (9) CAD (coronary artery disease): Status: Chronic Qualifiers: Associated angina: unspecified whether angina present Coronary Disease- Associated Artery/Lesion type: unspecified vessel or lesion type [place] vs. transplanted heart: unspecified whether [place] or transplanted heart Qualified Code(s): I25.10 - Atherosclerotic heart disease of [place] coronary artery without angina pectoris (10) Hyperlipidemia: Status: Chronic Qualifiers: Hyperlipidemia type: mixed hyperlipidemia Qualified Code(s): E78.2 - Mixed hyperlipidemia (11) Hypertension: Status: Chronic Qualifiers: Hypertension type: primary hypertension Qualified Code(s): I10 - Essential (primary) hypertension (12) Type 2 diabetes mellitus: Status: Chronic Qualifiers: Diabetes mellitus complication status: with other specified complication Diabetes mellitus assisted insulin use: without assisted use Qualified Code(s): E11.69 - Type 2 diabetes mellitus with other specified complication (13) Hypomagnesemia: Status: Acute
[2024-11-04] MEDS: LASIX IVP SCH (11:23)
[2024-11-04] MEDS ORDERED: NS 500 ML IV 500 ML IV ONE (16:48)
[2024-11-04] MEDS: LASIX IVP PRN (23:42)
[2024-11-05 04:56] LABS: BASOPHILS # (AUTO) 0.1 X10^3/uL (0.0-0.1); BASOPHILS % (AUTO) 1.1 % (0.2-1.0); EOSINOPHILS # (AUTO) 0.5 x10^3/uL (0.0-0.2); EOSINOPHILS % (AUTO) 3.8 % (0.9-2.9); HEMATOCRIT 25.8 % (42.0-54.0); LYMPHOCYTES # (AUTO) 1.6 X10^3/uL (1.3-2.9); LYMPHOCYTES % (AUTO) 12.2 % (21.0-51.0); MEAN CORPUSCULAR HEMOGLOBIN 29.2 pg (27.0-34.0); MEAN CORPUSCULAR HGB CONC 34.8 g/dL (33.0-35.0); MEAN CORPUSCULAR VOLUME 83.8 fL (80.0-100.0); MEAN PLATELET VOLUME 6.8 fL (7.4-11.0); MONOCYTES # (AUTO) 0.6 x10^3/uL (0.3-0.8); MONOCYTES % (AUTO) 4.7 % (0.0-13.0); NEUTROPHILS # (AUTO) 10.6 x10^3/uL (2.2-4.8); NEUTROPHILS % (AUTO) 78.2 % (42.0-75.0); PLATELET COUNT 668 X10^3/uL (150.0-450.0); RED BLOOD COUNT 3.07 X10^6/uL (4.7-6.0); RED CELL DISTRIBUTION WIDTH 16.6 % (11.6-16.5); WHITE BLOOD COUNT 13.5 X10^3/uL (3.6-10.0)
[2024-11-05 05:06] LABS: ALBUMIN 1.6 g/dL (3.4-5.0); CALCIUM 8.5 mg/dL (8.5-10.1); CARBON DIOXIDE 21.3 mmol/L (21-32); COR CA(FOR HYPOALB) 10.4 mg/dL (8.5-10.1); CREATININE 3.02 mg/dL (0.70-1.30); POTASSIUM 4.1 mmol/L (3.5-5.1); TOTAL PROTEIN 6.3 g/dL (6.4-8.2)
[2024-11-05] MEDS ORDERED: CONSULT PHARMACY - POTASSIUM & MAGNESIUM XX SCH (09:00)
[2024-11-05] MEDS: MAGNESIUM SULFATE 1 GRAM/100 mL PREMIX 1 G/100 ML BAG IV NR (09:50)
[2024-11-05 16:26] VITALS: BP 174/87; PULSE 80; RESP 18; TEMP 98.2; O2SAT 98
[2024-11-05] MEDS ORDERED: MAG-OX TAB PO SCH (21:00)
--- NOTE | 2024-11-07 15:34 | MRI ---
EXAM:MRI LUMBAR SPINE WITHOUT CONTRASTHISTORY:LOW BACK PAIN;COMPARISON:None.TECHNIQUE:Multiplan ar multisequence MRI was obtained through the lumbar spine without contrast.FINDINGS:There are 5 nonrib-bearing lumbar vertebral bodies. Alignment is within normal limits. Vertebral body heights are within normal limits. L4-5 intervertebral disc desiccation noted with posterior annular tear. Discogenic marrow changes are present. The conus medullaris terminates normally. Visualized posterior abdomen and pelvis are within normal limits.L1-2: Mild facet joint osteoarthritis. No central canal or neural foraminal stenosis.L2-3: Mild disc bulge. Mild facet joint osteoarthritis.L3-4: Mild disc bulge. Mild facet joint osteoarthritis.L4-5: Mild disc bulge. Mild facet joint osteoarthritis. Mild effacement of anterior CSF. Mild neural foraminal narrowing bilaterally.L5-S1: Mild facet joint osteoarthritis.IMPRESSION:Degenerative changes appear most prominent at L4-5 where there is a mild disc bulge along with mild facet joint osteoarthritis contributing to mild effacement of anterior CSF and mild neural foraminal narrowing without direct nerve impingement.THIS IS AN ELECTRONICALLY VERIFIED FINAL REPORT11/07/2024 3:31 PM - Electronically signed by Heriberto Melendez MD
--- NOTE | 2024-11-09 16:55 | MRI ---
EXAM:MRI THORACIC SPINE WITHOUT CONTRASTHISTORY:THORACIC SPINE PAIN; .COMPARISON:CT chest 05/28/2024, MRI lumbar spine 11/05/2024.TECHNIQUE:Multiplanar multisequence MRI was obtained through the thoracic spine without contrast.FINDINGS:Thoracic curvature, vertebral body heights, intervertebral disc spaces, and alignment are maintained throughout the thoracic spine. There is no evidence of discitis, osteomyelitis, or epidural abscess. The thoracic spinal cord is normal in signal intensity and morphology, appropriately surrounded by CSF at all levels.Included portions of the chest and upper abdomen demonstrate chronic elevation of the left diaphragm with probable compressive atelectasis of the left lower lobe.There is no evidence of focal disc protrusion, spinal stenosis, or foraminal stenosis at each level of the thoracic spine.IMPRESSION:1. MRI of the thoracic spine is within normal limits. No evidence of disc protrusion, spinal stenosis, or foraminal stenosis.THIS IS AN ELECTRONICALLY VERIFIED FINAL REPORT11/09/2024 4:52 PM - Electronically signed by Fred Damon MD
== END 2024-11-05 18:43 | disposition home or self-care (01) | DRG 682 ==
LOC: ICU → OBSVTOIN 14:53 → MED/SURG 11-01 16:58
PROVIDERS: ADMIT Family Medicine; ATTEND Family Medicine
DX: R10.84 Generalized abdominal pain; N39.0 Urinary tract infection, site not specified; Z16.29 Resistance to other single specified antibiotic; E87.1 Hypo-osmolality and hyponatremia; R07.89 Other chest pain; E83.42 Hypomagnesemia; R06.02 Shortness of breath; N17.8 Other acute kidney failure; I25.10 Atherosclerotic heart disease of native coronary artery without angina pectoris; E11.00 Type 2 diabetes mellitus with hyperosmolarity without nonketotic hyperglycemic-hyperosmolar coma (NKHHC); K92.1 Melena; I50.9 Heart failure, unspecified; R94.31 Abnormal electrocardiogram [ECG] [EKG]; R79.82 Elevated C-reactive protein (CRP); I11.0 Hypertensive heart disease with heart failure; R78.81 Bacteremia; N12 Tubulo-interstitial nephritis, not specified as acute or chronic; M54.89 Other dorsalgia; Z16.12 Extended spectrum beta lactamase (ESBL) resistance; Z29.89 Encounter for other specified prophylactic measures; E78.2 Mixed hyperlipidemia; B95.62 Methicillin resistant Staphylococcus aureus infection as the cause of diseases classified elsewhere; R70.0 Elevated erythrocyte sedimentation rate; D64.89 Other specified anemias; E11.65 Type 2 diabetes mellitus with hyperglycemia; R53.1 Weakness